=== PATIENT | female | born 1940 | race Caucasian/White ===

== ENCOUNTER → 2017-06-28 | Outpatient (CLI) | payer OTHER | END | disposition home or self-care (01) | LOC: C.PATHSPEC 17:33 | PROVIDERS: ATTEND Plastic Surgery | DX: C44.209 Unspecified malignant neoplasm of skin of left ear and external auricular canal (principal) ==

== ENCOUNTER → 2017-11-28 | Outpatient (CLI) | payer OTHER, BC | END | disposition home or self-care (01) | LOC: C.PATHSPEC 18:03 | PROVIDERS: ATTEND Dermatology | DX: C44.41 Basal cell carcinoma of skin of scalp and neck (principal) ==

== ENCOUNTER 2018-03-01 05:04 | Observation (INO) | payer OTHER, BC ==
[2018-02-20 08:37] VITALS: BMI 45.0
[2018-02-21 09:13] VITALS: BMI 45.0
--- NOTE | 2018-02-21 09:32 | PAT Medication Instructions ---
Service Date Feb 21, 2018. Current Home Medication List Alendronate/Cholecalciferol (Fosamax+D 70MG/2800 Iu), 1 TABLET PO WK Atorvastatin (Lipitor), 10 MG PO Mon Cholecalciferol (Vitamin D3), 1 TAB PO QAM Ibuprofen Tab (Advil), 400 MG PO BID Insulin Human Regular (Insulin Regular Pump ), 1 EA N/A UD Meloxicam (Mobic), 15 MG PO QAM Metformin Hcl (Glucophage), 500 MG PO BID Olopatadine Hydrochloride (Pataday), 1 DROPS OP PRN Psyllium (Metamucil), 1 DOSE PO QAM Triamcinolone Acetonide (Nasal (Nasacort Allergy 24Hr), 2 SPRAYS INTNAS PRN [Coq10], 1 TAB PO QAM [Losartan Hctz], 1 TAB PO QAM [Turmeric], 15 MG PO BID Medication Instructions For Your Scheduled Surgery - Continue as directed: Atorvastatin (Lipitor), 10 MG PO Mon Alendronate/Cholecalciferol (Fosamax+D 70MG/2800 Iu), 1 TABLET PO WK - Check with surgeon for instructions: Ibuprofen Tab (Advil), 400 MG PO BID - Hold the following medications starting 02/21/18: [Turmeric], 15 MG PO BID [Coq10], 1 TAB PO QAM - Hold the following medications the morning of surgery: Cholecalciferol (Vitamin D3), 1 TAB PO QAM Meloxicam (Mobic), 15 MG PO QAM Metformin Hcl (Glucophage), 500 MG PO BID Psyllium (Metamucil), 1 DOSE PO QAM [Losartan Hctz], 1 TAB PO QAM - Take the following medications the morning of surgery with a sip of water: Olopatadine Hydrochloride (Pataday), 1 DROPS OP PRN (if needed) Triamcinolone Acetonide (Nasal (Nasacort Allergy 24Hr), 2 SPRAYS INTNAS PRN (if needed) - Take the following medications as scheduled the night before surgery: Olopatadine Hydrochloride (Pataday), 1 DROPS OP PRN (if needed) Metformin Hcl (Glucophage), 500 MG PO BID Triamcinolone Acetonide (Nasal (Nasacort Allergy 24Hr), 2 SPRAYS INTNAS PRN (if needed) - For Insulin Dependent Diabetic patients: Test blood sugar A.M. of surgery. -Insulin Human Regular (Insulin Regular Pump ), 1 EA N/A UD-- keep on basal setting; do not bolus If you have any questions please call us at [phone] or [phone] or [phone]
[2018-02-21 10:23] LABS: BASO % 0.5 %; BASO ABS # 0.05 K/uL (0-0.2); EOS % 2.4 %; EOS ABS # 0.22 K/uL (0-0.5); HEMATOCRIT 43.7 % (37-47); HEMOGLOBIN 14.5 g/dL (12.0-16.0); IG# 0.02 K/uL (0.00-0.02); LYMPH % 27.4 %; LYMPH ABS # 2.54 K/uL (1.2-3.4); MEAN CELL VOLUME 90.7 fL (80-100); MEAN CORPUSCULAR HEMOGLOBIN 30.1 pg (25-34); MEAN CORPUSCULAR HGB CONC 33.2 g/dl (32-36); MEAN PLATELET VOLUME 11.2 fL (7.4-10.4); MONO % 10.2 %; MONO ABS # 0.95 K/uL (0.11-0.59); NEUT % 59.3 %; NEUT ABS # 5.49 K/uL (1.4-6.5); PLATELET COUNT 261 K/uL (130-400); RED CELL DISTRIBUTION WIDTH CV 14.1 % (11.5-14.5); RED CELL DISTRIBUTION WIDTH SD 46.6 fL (36.4-46.3); WHITE BLOOD COUNT 9.27 K/uL (4.8-10.8)
--- NOTE | 2018-02-21 10:28 | DIAGNOSTIC IMAGING REPORT ---
TWO VIEW CHEST CLINICAL HISTORY: Preoperative examination. FINDINGS: PA and lateral chest radiographs are obtained. No prior studies are available for comparison at the time of dictation. The cardiomediastinal silhouette is unremarkable. Nonspecific interstitial thickening is likely chronic. No airspace consolidation or pleural effusion is identified. There is no pneumothorax. The skeletal structures are osteopenic. Degenerative change is noted throughout the thoracic spine. The bony thorax appears intact. IMPRESSION: No active disease in the chest. Electronically signed by: Julius Joel M.D. 02/21/2018 10:26 AM Dictated Date/Time: 02/21/2018 10:26 AM
[2018-02-21 10:29] LABS: HEMOGLOBIN A1C 7.1 % (4.5-5.6)
[2018-02-21 10:30] LABS: CALCIUM 9.2 mg/dl (8.5-10.1); CREATININE 1.14 mg/dl (0.60-1.20); POTASSIUM 4.5 mmol/L (3.5-5.1)
--- NOTE | 2018-02-28 15:38 | HISTORY & PHYSICAL EXAMINATION ---
DATE OF ADMISSION: 03/01/2018 She is being preoped for laminectomy L3-L4, L4-L5. CHIEF COMPLAINT: Back pain; lower extremity difficulty; difficulty with ambulation, standing up; associated weakness and gait abnormality. She has failed conservative measures. She has profound stenosis of the spine. PAST MEDICAL HISTORY: Hypertension, diabetes, obesity. PAST SURGICAL HISTORY: Negative. ALLERGIES: None. FAMILY HISTORY: Diabetes. SOCIAL HISTORY: She is , rarely drinks. No tobacco. Moderately active lifestyle. REVIEW OF SYSTEMS: Twelve system review. She denies any fevers, sweats, chills. Ear, nose and throat negative. Denies chest pain, palpitations. No asthma, wheezing. No nausea, vomiting. No loss of bowel and bladder function. She has mostly joint pain, stiffness. MEDICATIONS: Lipitor, losartan, metformin, insulin, CoQ10, turmeric and vitamin D3. PHYSICAL EXAMINATION: VITAL SIGNS: Height 5 feet 2 inches, weight 230. Blood pressure 140/80, pulse 80. GENERAL: Alert, oriented. MENTATION: Normal. CARDIAC: Normal S1, S2. LUNGS: Clear. ABDOMEN: Obese, but nontender. EXTREMITIES: Intact x4. No adenopathy. Mild edema. She has pain with straight leg raising bilateral, decreased range of motion and pain with extension, alleviated by forward flexion. IMAGES: Demonstrate severe stenosis, critical level L3-L5. PLAN: Includes a laminectomy L3-L4, L4-L5 lumbar spine.
[2018-03-01] VITALS (9 sets, daily range): BP systolic 123–156; BP diastolic 57–90; PULSE 62–85; TEMP 36.5–37; O2SAT 91–97; Ht 154.9 cm; Wt 107.8 kg
[~2018-03-01] VITALS: Ht 154.9 cm; Wt 107.8 kg
[~2018-03-01 05:04] MED LIST: ATOR10TA82 PO; CHOL1000 PO; COQ10 PO; FSMD/70 PO; GLC/500 PO; IBUP-103 PO; INSPMPRG; LOSARTAN HCTZ PO; MELO7.5T5 PO; PSYL0.524 PO; PTDOPS OP; TRIA1SPR4 INTNAS; TURMERIC PO
[2018-03-01] MEDS ORDERED: CEFAZOLIN 2000MG IV PUSH 15 ML IV SCH (06:00)
[2018-03-01] MEDS ORDERED: SODIUM CHLORIDE 0.9% 1000ML 1,000 ML IV SCH ×2 (06:00→09:16)
[2018-03-01] MEDS ORDERED: LACTATED RINGER'S 1000ML 1,000 ML IV SCH (06:00)
[2018-03-01] MEDS ORDERED: GELATIN SPONGE SZ 100 ONE (06:50)
[2018-03-01] MEDS ORDERED: THROMBIN FOR SOLN 20000 UNIT KIT ONE (06:50)
[2018-03-01] MEDS ORDERED: VANCOMYCIN HCL 1000MG/20ML VIAL ONE (06:50)
[2018-03-01] MEDS ORDERED: BACITRACIN 50000 UNIT VIAL ONE (06:50)
[2018-03-01] MEDS ORDERED: BUPIVACAINE/EPINEPHRINE 0.5% MPF 1:200,000 30 ML VIAL ONE (06:53)
[2018-03-01] MEDS ORDERED: FENTANYL CITRATE INJ 50 MCG/1 ML 2 ML VIAL ONE ×3 (07:02→10:13)
[2018-03-01] MEDS ORDERED: MIDAZOLAM HCL 1 MG/ML 2ML VIAL ONE (07:02)
--- NOTE | 2018-03-01 07:21 | History & Physical Bridge Note ---
H&P Re-Evaluation Bridge Note: I have examined the patient, reviewed the History & Physical and in the interval since the performance of the History & Physical I have noted the following changes of clinical significance: No changes noted
[2018-03-01] MEDS ORDERED: LARYING-O-JET KIT (LTA) ONE (08:14)
[2018-03-01] MEDS ORDERED: NEOSTIGMINE METHYLSULFATE 1 MG/ML 10ML VIAL ONE (08:14)
[2018-03-01] MEDS ORDERED: ONDANSETRON INJ 2 MG/ML 2 ML VIAL ONE (08:14)
[2018-03-01] MEDS ORDERED: EpHEDrine SULFATE 50MG/5ML SYR ONE (08:14)
[2018-03-01] MEDS ORDERED: GLYCOPYRROLATE INJ 0.2 MG/ML VIAL ONE (08:14)
[2018-03-01] MEDS ORDERED: LIDOCAINE HCL 2% 2 ML VIAL (20MG/ML) ONE (08:14)
[2018-03-01] MEDS ORDERED: ROCURONIUM BROMIDE 10 MG/ML 5 ML VIAL ONE (08:14)
[2018-03-01] MEDS ORDERED: PHENYLEPHRINE 100MCG/ML 5ML SYR ONE (08:14)
[2018-03-01] MEDS ORDERED: SUCCINYLCHOLINE CHLORIDE 20 MG/ML 10 ML VIAL IV ONE (08:14)
[2018-03-01] MEDS ORDERED: PROPOFOL IV EMULSION 10 MG/ML 20 ML VIAL ONE (08:14)
--- NOTE | 2018-03-01 09:11 | [facility] Post Operative Brief Note ---
Immediate Operative Summary Operative Date Mar 01, 2018. Pre-Operative Diagnosis SPINAL STENOSIS Post-Operative Diagnosis SAME PREOP Procedure(s) Performed LAMINECTOMY L3-4, L4-[address] Meagan KAUR Log Roller Surgeon(s) Keven ALCANTAR PAC Estimated Blood Loss 150ml Findings Consistent with Post-Op Diagnosis Specimens NONE Anesthesia Type General Disposition Accompanied Pt To Recover: yes Overlapping Procedure I was immediately available: during the entire case
--- NOTE | 2018-03-01 09:28 | DIAGNOSTIC IMAGING REPORT ---
SPINE ONE VIEW, ANY LEVEL CLINICAL HISTORY: 77 years-old Female presenting with L3-L4 L4-L5 LAMI. TECHNIQUE: 1 fluoroscopic image(s) recorded as part of an intraoperative procedure. COMPARISON: 01/19/2018. FINDINGS/IMPRESSION: Surgical hardware projects over the lumbar region. Please see surgical report for further details. Fluoroscopy dosage (mGy): 1.93. Fluoroscopy time: 2.8 seconds. Number or time of fluoroscopic spot images: 0. Electronically signed by: Art Alba M.D. 03/01/2018 9:26 AM Dictated Date/Time: 03/01/2018 9:26 AM
[2018-03-01] MEDS ORDERED: ACETAMINOPHEN 325 MG TAB PO PRN (09:30)
[2018-03-01] MEDS ORDERED: ONDANSETRON INJ 2 MG/ML 2 ML VIAL IV PRN ×2 (09:30→10:15)
[2018-03-01] MEDS ORDERED: INSULIN REGULAR PUMP SCH (09:30)
[2018-03-01] MEDS ORDERED: HYDROmorphone INJ 2 MG/ML SYR/VIAL IV PRN (09:30)
[2018-03-01] MEDS ORDERED: HYDROmorphone INJ 1 MG/ML SYR IV PRN (09:30)
[2018-03-01] MEDS ORDERED: OXYCODONE HCL IR 5 MG TAB (IMMEDIATE RELEASE) PO PRN ×2 (09:30)
[2018-03-01] MEDS ORDERED: PROMETHAZINE HCL INJ 12.5 MG in SODIUM CHLORIDE 0.9% 50ML 50 ML IV PRN (09:30)
[2018-03-01] MEDS ORDERED: MAGNESIUM HYDROXIDE SUSP 30 ML UDC PO PRN (09:30)
[2018-03-01] MEDS ORDERED: LORAZEPAM 1 MG TAB PO PRN (09:30)
[2018-03-01] MEDS ORDERED: METOCLOPRAMIDE HCL INJ 5 MG/ML 2 ML VIAL IV PRN (09:30)
[2018-03-01] MEDS ORDERED: LORAZEPAM INJ 1 MG in SYRINGE 0 ML IV PRN (09:30)
[2018-03-01 09:50] LABS: HEMATOCRIT 39.3 % (37-47); HEMOGLOBIN 12.9 g/dL (12.0-16.0)
[2018-03-01] MEDS ORDERED: HYDROmorphone INJ 0.5 MG/0.5 ML SYR IV PRN (10:15)
[2018-03-01] MEDS ORDERED: EpHEDrine SULFATE INJ 50 MG/ML AMP IV PRN (10:15)
[2018-03-01] MEDS ORDERED: ATROPINE SULFATE 0.1 MG/ML 5ML SYR IV PRN (10:15)
[2018-03-01] MEDS ORDERED: FENTANYL CITRATE INJ 50 MCG/1 ML 2 ML VIAL IV PRN (10:15)
[2018-03-01] MEDS ORDERED: PROMETHAZINE HCL INJ 6.25 MG in SODIUM CHLORIDE 0.9% 50ML 50 ML IV PRN (10:15)
--- NOTE | 2018-03-01 10:26 | Anesthesiology Progress Note ---
Anesthesia Post Op Note Date & Time Mar 01, 2018 at 10:26 Vital Signs Pain Intensity: 4 Vital Signs Past 12 Hours Date Time Temp Pulse Resp B/P (MAP) Pulse Ox O2 Delivery O2 Flow Rate FiO2 03/01/18 10:15 36.3 63 20 141/64 97 Nasal Cannula 4 03/01/18 10:05 68 20 143/60 96 Nasal Cannula 4 03/01/18 09:55 70 19 131/60 96 Nasal Cannula 4 03/01/18 09:45 68 19 155/65 98 Oxymask 10 03/01/18 09:35 70 17 128/54 98 Oxymask 10 03/01/18 09:25 70 23 140/58 96 Oxymask 10 03/01/18 09:16 36.6 68 16 142/58 96 Oxymask 10 03/01/18 05:42 36.7 82 18 123/90 (101) 92 Room Air Notes Mental Status: alert / awake / arousable, participated in evaluation Pt Amnestic to Procedure: Yes Nausea / Vomiting: adequately controlled Pain: adequately controlled Airway Patency, RR, SpO2: stable & adequate BP & HR: stable & adequate Hydration State: stable & adequate Anesthetic Complications: no major complications apparent
[2018-03-01] MEDS ORDERED: LABETALOL HCL IV 5 MG/ML 20ML ONE (10:30)
[2018-03-01] MEDS ORDERED: HYDROmorphone INJ 0.5 MG/0.5 ML SYR IV ONE (11:30)
--- NOTE | 2018-03-01 11:37 | Medical Consult ---
Consultation Date of Consultation: Mar 01, 2018. Attending Physician: Francisco Dumont DO History of Present Illness 77 y/o F Hx DM II, HTN, HPL, obesity, osteoporosis, lumbar stenosis. The pt is post L 3-4, 4-5 laminectomy. She has no complaints of CP, SOB, N/V, fevers. She does have a burning pain at the surgical site. Past Medical/Surgical History 1) DM II 2) HTN 3) HPL 4) Morbidly obese 5) Lumbar stenosis 6) Osteoporosis Family History DM II Social History Does not smoke - rarely drinks Smoking Status: Never Smoker Allergies Coded Allergies: Codeine (Verified Allergy, Unknown, NAUSEA, 03/01/18) Penicillins (Verified Allergy, Unknown, BLACKED OUT- A CHILD, 03/01/18) Meperidine (Verified Adverse Reaction, Mild, STARTED BLEEDING FROM INJECTION SITE, 03/01/18) Current Inpatient Medications Current Inpatient Medications Medications (Trade) Dose Ordered Sig/Roshan Route Start Time Stop Time Status Last Admin Dose Admin Cefazolin Sodium 15 ml @ 3.75 mls/ min PREOP IV 03/01/18 06:00 03/01/18 18:00 03/01/18 07:34 3.75 MLS/MIN Sodium Chloride 1,000 ml @ 15 mls/hr Q24H IV 03/01/18 06:00 03/02/18 05:59 03/01/18 05:55 15 MLS/HR Lactated Ringer's 1,000 ml @ 15 mls/hr Q24H IV 03/01/18 06:00 03/02/18 05:59 Acetaminophen (Tylenol Tab) 650 mg Q6H PRN PO 03/01/18 09:30 03/31/18 09:29 UNV Hydromorphone HCl (Dilaudid Inj) 1 mg Q3H PRN IV 03/01/18 09:30 03/15/18 09:29 UNV Hydromorphone HCl (Dilaudid Inj) 1.5 mg Q3H PRN IV 03/01/18 09:30 03/15/18 09:29 UNV Promethazine HCl 12.5 mg/Sodium Chloride 50.5 ml @ 202 mls/hr Q6H PRN IV 03/01/18 09:30 03/31/18 09:29 UNV Ondansetron HCl (Zofran Inj) 4 mg Q6H PRN IV 03/01/18 09:30 03/31/18 09:29 UNV Metoclopramide HCl (Reglan Inj) 10 mg Q6H PRN IV 03/01/18 09:30 03/31/18 09:29 UNV Lorazepam (Ativan Tab) 1 mg Q6H PRN PO 03/01/18 09:30 03/31/18 09:29 UNV Lorazepam 1 mg/ Syringe 0.5 ml @ 1 mls/min Q6H PRN IV 03/01/18 09:30 03/31/18 09:29 UNV Polyethylene (Miralax Powder Packet) 17 gm DAILY PO 03/02/18 09:00 04/01/18 08:59 UNV Bisacodyl (Dulcolax Tab) 5 mg DAILY PRN PO 03/02/18 06:00 04/01/18 05:59 UNV Bisacodyl (Dulcolax Supp) 10 mg DAILY PRN OR 03/02/18 06:00 04/01/18 05:59 UNV Magnesium Hydroxide (Milk Of Magnesia Susp) 30 ml DAILY PRN PO 03/01/18 09:30 03/31/18 09:29 UNV Diphenhydramine HCl (Benadryl Cap) 25 mg Q6H PRN PO 03/01/18 09:30 03/31/18 09:29 UNV Clindamycin Phosphate 600 mg/ Dextrose 54 ml @ 100 mls/hr Q8H IV 03/01/18 09:30 03/01/18 18:03 UNV Oxycodone HCl (Roxicodone Immediate Rel Tab) 5 mg Q4H PRN PO 03/01/18 09:30 03/15/18 09:29 UNV Oxycodone HCl (Roxicodone Immediate Rel Tab) 10 mg Q4H PRN PO 03/01/18 09:30 03/15/18 09:29 UNV Sodium Chloride 1,000 ml @ 80 mls/hr [id number] IV 03/01/18 09:16 03/31/18 09:15 UNV Acetaminophen 1000 mg/Empty Bag 100 ml @ 400 mls/hr Q8H IV 03/01/18 09:30 03/31/18 09:29 UNV Ibuprofen (Advil Tab) 400 mg BID PO 03/01/18 21:00 03/31/18 20:59 UNV Insulin Human Regular (Insulin Regular Pump) 1 ea UD N/A 03/01/18 09:30 03/31/18 09:29 UNV Meloxicam (Mobic Tab) 15 mg QAM PO 03/02/18 09:00 04/01/18 08:59 UNV Non-Formulary Medication (Olopatadine Hydrochloride (Pataday)) 1 drops PRN OP 03/01/18 09:30 03/31/18 09:29 UNV Non-Formulary Medication (Psyllium (Metamucil)) 1 dose QAM PO 03/02/18 09:00 04/01/18 08:59 UNV Non-Formulary Medication ([Coq10] ) 1 tab QAM PO 03/02/18 09:00 04/01/18 08:59 UNV Non-Formulary Medication ([Losartan Hctz] ) 1 tab QAM PO 03/02/18 09:00 04/01/18 08:59 UNV Non-Formulary Medication ([Turmeric] ) 15 mg BID PO 03/01/18 21:00 03/31/18 20:59 UNV Fentanyl Citrate (Fentanyl Inj) 50 mcg Q5M PRN IV 03/01/18 10:15 03/01/18 16:15 Hydromorphone HCl (Dilaudid Inj) 0.5 mg Q5M PRN IV 03/01/18 10:15 03/01/18 16:15 Ondansetron HCl (Zofran Inj) 4 mg ONE PRN IV 03/01/18 10:15 03/01/18 15:15 Promethazine HCl 6.25 mg/Sodium Chloride 50.25 ml @ 202 mls/hr ONE PRN IV 03/01/18 10:15 03/01/18 16:15 Ephedrine Sulfate (EpHEDrine SULFATE INJ) 5 mg Q5M PRN IV 03/01/18 10:15 03/01/18 16:15 Atropine Sulfate (Atropine Sulfate 0.1mg/ml Inj) 0.5 mg Q1M PRN IV 03/01/18 10:15 03/01/18 16:15 Review of Systems Constitutional: No fever, No chills, No sweats Eyes: No worsening of vision ENT: No hearing loss, No nasal symptoms Respiratory: No cough, No sputum, No wheezing Cardiovascular: No chest pain Abdomen: No pain, No nausea, No vomiting Musculoskeletal: + joint pain (Chronic back pain), + problem reported (pain at surgial site - burning in nature) Genitourinary - Female: No dysuria, No urinary frequency Neurologic: No memory loss, No paralysis Psychiatric: No depression symptoms Endocrine: No fatigue Hematologic / Lymphatic: No abnormal bleeding/bruising Integumentary: No rash Allergic / Immunologic: No environmental allergies Physical Exam Date Time Temp Pulse Resp B/P (MAP) Pulse Ox O2 Delivery O2 Flow Rate FiO2 03/01/18 10:35 36.3 66 26 148/79 96 Nasal Cannula 4 03/01/18 10:25 36.3 63 20 140/72 96 Nasal Cannula 4 03/01/18 10:15 36.3 63 20 141/64 97 Nasal Cannula 4 03/01/18 10:05 68 20 143/60 96 Nasal Cannula 4 03/01/18 09:55 70 19 131/60 96 Nasal Cannula 4 03/01/18 09:45 68 19 155/65 98 Oxymask 10 03/01/18 09:35 70 17 128/54 98 Oxymask 10 03/01/18 09:25 70 23 140/58 96 Oxymask 10 03/01/18 09:16 36.6 68 16 142/58 96 Oxymask 10 03/01/18 05:42 36.7 82 18 123/90 (101) 92 Room Air General Appearance: WD/WN, no apparent distress Head: normocephalic Eyes: normal inspection ENT: normal ENT inspection, pharynx normal Neck: supple, no JVD Respiratory/Chest: chest non-tender, lungs clear, normal breath sounds Cardiovascular: regular rate, rhythm, no gallop Abdomen/GI: normal bowel sounds, non tender, soft Back: + pertinent finding (Did not shift pt forward post-op) Extremities/Musculoskelatal: normal inspection, no calf tenderness 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 The pt is post L 3-4, 4-5 laminectomy. She has no complaints of CP, SOB, N/V, fevers. She does have a burning pain at the surgical site. 1) Post-op - no acute complications - PT/OT and anticoagulation at earliest appropriate time per ortho. We have provided one additional dose of Dilaudid for uncontrolled pain and we will make further adjustments as needed. 2) DM II - Pt uses a pump which can be continued 3) HTN - Losartan can be resumed following AM labs POD 2 if there are no acute derangements. 4) HPL - cont Atorvastatin michael-op. Total time for this admit including review of labs, meds, imaging, records - discussion with pt and review of ortho notes - 30 min
[2018-03-01] MEDS ORDERED: HYDROmorphone INJ 1 MG/ML SYR ONE (11:45)
[2018-03-01] MEDS ORDERED: IV FLUIDS COMPLETED PRN (12:30)
[2018-03-01] MEDS: ACETAMINOPHEN IV 1,000 MG in EMPTY BAG 0 ML IV SCH ×3 (13:31→21:52)
[2018-03-01] MEDS ORDERED: NURSING VERBAL MED ORDER ONE (13:45)
--- NOTE | 2018-03-01 14:13 | OPERATIVE REPORT ---
DATE OF OPERATION: 03/01/2018 PREOPERATIVE DIAGNOSIS: Spinal stenosis, L3, L4, L5. POSTOPERATIVE DIAGNOSIS: Same. PROCEDURES: Include laminectomy L3, L4, L5, foraminotomies and partial facetectomies. SURGEON: Francisco Dumont DO. HOOF AND SHOE INSPECTOR: Ze Hernandez PA-C. COMPLICATIONS: None. ESTIMATED BLOOD LOSS: 150 mL. DESCRIPTION OF PROCEDURE: Patient was taken to the operating room. A general intubated anesthetic provided to the patient, placed prone. Scrubbed, prepped and draped sterile. We made a skin incision, fascial incision. We dissected down toward the lamina and facet joints cleanly, put in a deep self-retaining retractor, 4 inch blades by the super slide retractor. We meticulously decompressed the lamina of L5, L4, and L3 using various techniques, Kerrison's, rongeurs, and a high speed bur. I was pleased with the decompression from the visualization and palpation. We began our closure, irrigated thoroughly, placed Gelfoam and vancomycin powder deep over a Hemovac drain, 1:1 Vicryl closure, 2-0 subcu, and staple gun on the skin. Sterile dressings applied. Patient returned to PACU safely without complications. I attest to the content of the Intraoperative Record and any orders documented therein. Any exception s are noted below.
[2018-03-01] MEDS ORDERED: DEXTROSE 50% 50 ML SYR IV PRN (15:00)
[2018-03-01] MEDS ORDERED: GLUCAGON FOR INJ 1 MG VIAL IM PRN (15:00)
[2018-03-01] MEDS ORDERED: GLUCOSE 40% GEL 15 GM TUBE PO PRN (15:00)
[2018-03-01] MEDS ORDERED: CARBOHYDRATES FOR HYPOGLYCEMIA PO PRN (15:00)
[2018-03-01] MEDS ORDERED: INSULIN ASPART 100 UNITS/ML VIAL SC PRN (15:00)
[2018-03-01] MEDS ORDERED: GLUCOSE 10 TABS/TUBE PO PRN (15:00)
[2018-03-01] MEDS: CLINDAMYCIN IV 600 MG in DEXTROSE 5% 50ML 50 ML IV SCH ×2 (16:41→23:21)
[2018-03-01] MEDS: NovoLOG INSULIN PUMP SCH ×2 (17:28→21:17)
[2018-03-01] MEDS ORDERED: TURMERIC PO SCH (21:00)
[2018-03-01] MEDS: IBUPROFEN 200 MG TAB PO SCH (21:03)
[2018-03-02 03:05] VITALS: BP 129/68; PULSE 81; TEMP 36.8; O2SAT 94
[2018-03-02] MEDS ORDERED: BISACODYL 10 MG SUPP PR PRN (06:00)
[2018-03-02] MEDS ORDERED: BISACODYL 5 MG TABEC PO PRN (06:00)
[2018-03-02 07:28] VITALS: BP 166/85; PULSE 89; TEMP 36.6; O2SAT 94
[2018-03-02] MEDS ORDERED: OXYC-57 PO (08:07)
--- NOTE | 2018-03-02 08:08 | Discharge Instructions ---
Discharge Instructions Date of Service Mar 02, 2018. Admission Reason for Admission: Lumbar Spinal Stenosis Discharge Discharge Diagnosis / Problem: same Discharge Goals Goal(s): Improve function Activity Recommendations Activity Limitations: as noted below Lifting Limitations: no more than 5 pounds Shower/Bathe: keep incision dry . Instructions / Follow-Up Instructions / Follow-Up MEDICATIONS: Please take your prescriptions as instructed at your pre-op appointment. SPECIAL CARE: The following information is intended to answer some of the common questions and concerns regarding your surgery. Each patient is an individual and receives individual counselling throughout the course of treatment, from diagnosis to surgery all the way through recovery. What follows is not an exhaustive list, but should be a useful guide to some of the common questions and concerns patients have regarding their surgeries. These are not provided to keep you from calling us; rather, they give you something accurate and concrete to reference as you recover from your procedure. If you need us, we are available to you. As always, if you are not sure about something, call us at [phone]. MEDICAL EMERGENCIES: For these conditions, call 911 or go to your local hospital-based Emergency Department - not [facility] or equivalent. * Paralysis * Severe chest pain or difficulty breathing * Swelling or redness of either leg Spine procedures can be rather complex and though complications are rare, they do occur. In such cases, effective advice regarding emergency situations cannot always be addressed over the telephone. You may be referred to the emergency department for more effective management of your problem. Activity Limitations: It is important to give your body time to heal, so please limit your activities : * In general, don't do anything that moves your spine too much. You should avoid contact sports, twisting or heavy lifting while you recover. * 5-10 pounds is all you should attempt to lift. * You should not plan on driving for approximately 3 weeks and you should avoid traveling more than 30-45 minutes at a time. Longer trips should be broken down with walking breaks spaced appropriately. * Physical therapy is not usually required. * Walking and good posture practices will help you recover and regain your function. * Avoid straining or sudden changes in position. * In general, the goal is to take it easy and recover. Don't cause any new problems. Just relax. Showers: * Do not take a bath, use a Jacuzzi or hot tub or otherwise submerge your incision. * It is usually safe to take a shower 4-5 days after your surgery. * Your incision does not require any special creams or ointments. * Simply clean it with soap and water, dry and re-dress with a clean bandage afterwards. Incision: * Keep incision clean, dry and protected until your first follow-up appointment. * Some amount of drainage and redness is normal. Any drainage should be fairly clear and not have a foul odor. * If you feel anything is wrong or you have excessive drainage, please call us. * Your stitches and noe will be removed 10-14 days after your surgery. At the time of your first post-op visit. * Neck surgeries are typically closed with a suture underneath the skin. The steri-strips over the incision should be maintained until we see you in the office. Bracing: * You may be provided with a back or neck brace to encourage good posture and prevent injury. It will remind you not to do too much as you heal and will alert others to the fact that you have had a surgery. * Back braces may be removed for showers and when you are resting at home. They must be worn when you are walking around for any period of time or for travel. * For neck surgery, you will likely be provided with two cervical collars. The soft collar ([place] or foam rubber) is worn most commonly throughout the day and while sleeping. The plastic collar (provided at the hospital) is for showering/bathing. * Except while eating, collars should remain in place. More specifically, bracing is provided for a purpose and should be worn. * Please obtain your brace or collars prior to your operation and bring them to the hospital with you on the day of surgery. * You should also bring your collars to your post-op appointment with Dr. Dumont. You should always take good care of your body and practice healthy habits, especially following surgery. You should: * Follow your doctor's treatment plan * Sit and stand properly with good posture (ears over shoulders, shoulders over hips) Don't slouch * Learn to lift correctly * Exercise regularly (low-impact aerobic exercise is especially good, but check with your doctor first) * Generally, be up and walking for 5-10 minutes at a time at least 3-4 times per day from the day you get home * Increasing walking to tolerance until you can walk for 20-30 minutes at a time * Attain and maintain a healthy body weight * Eat healthy foods ( a well-balanced, low-fat diet rich in fruits and vegetables) and get enough calcium * Avoid excessive use of alcohol When to call our office - If you notice any of the following: * Increased pain not relieve by pain medicine * Fevers greater then 100 degrees F, chills or flu symptoms * Increased redness around incision * Drainage from the incision that is not clear * Any foul smelling drainage * Swelling or fluid collection beneath the skin Miscellaneous: * In the hospital, you may be given a walker or cane for support while walking. These are temporary needs and are intended to prevent injuries due to falls. You may discontinue them when you feel strong and steady enough on your feet. * Sleep in a comfortable position. We find that many patients find a lounge chair or recliner with several pillows to be beneficial in the early post-operative period. * The support stockings should be used for 7-10 days and may be discontinued when you are back to walking more and conducting usual household activities. No problem is insignificant. We are here to help you and get you well. Contact us at [phone]. Definitions: Foraminotomy: If part of the disc or a bone spur (osteophyte) is pressing on a nerve as it leaves the vertebra (through an exit called the foramen), a foraminotomy may be done. Otomy means "to make an opening." A foraminotomy is making the opening of the foramen larger, so the nerve can exit without being compressed. Laminotomy: Similar to the foraminotomy, a laminotomy makes a larger opening, this time in your bony plate protecting your spinal canal and spinal cord (the lamina). The lamina may be pressing on your nerve, so the surgeon may make more room for the nerves using a laminotomy. Laminectomy: Sometimes, a laminotomy is not sufficient. The surgeon may need to remove all or part of the lamina. This procedure is called a laminectomy. This can often be done at many levels without any harmful effects. Current Hospital Diet Patient's current hospital diet: Diabetes Type 2 Diet Discharge Diet Recommended Diet: Diabetes Type 2 Diet Procedures Procedures Performed: LAMINECTOMY L3-4, L4-5 Pending Studies Studies pending at discharge: no Laboratory Results Hemoglobin A1c Test 02/21/18 09:38 Range/Units Estimated Average Glucose 157 mg/dl Hemoglobin A1c 7.1 H 4.5-5.6 % Medical Emergencies . Who to Call and When: Medical Emergencies: If at any time you feel your situation is an emergency, please call 911 immediately. . Non-Emergent Contact Non-Emergency issues call your: Primary Care Provider . "Provider Documentation" section prepared by Francisco Dumont. .
[2018-03-02] MEDS: MELOXICAM 7.5 MG TAB PO SCH (08:34)
[2018-03-02] MEDS: LOSARTAN POTASSIUM 50 MG TAB PO SCH (08:34)
[2018-03-02] MEDS: LOSARTAN/HCTZ 50-12.5 EA TAB PO SCH (08:34)
[2018-03-02] MEDS: NovoLOG INSULIN PUMP SCH ×4 (08:35→21:02)
[2018-03-02] MEDS: IBUPROFEN 200 MG TAB PO SCH ×2 (08:35→21:00)
[2018-03-02] MEDS: PSYLLIUM 58.6% PWD PACK S\\F PO SCH (08:35)
[2018-03-02] MEDS: POLYETHYLENE (MIRALAX) 17 GM PACK PO SCH (08:36)
[2018-03-02] MEDS ORDERED: NON-FORMULARY MEDICATION ([Coq10] 1 TAB) PO SCH (09:00)
[2018-03-02] MEDS: ACETAMINOPHEN IV 1,000 MG in EMPTY BAG 0 ML IV SCH ×3 (13:27→22:24)
[2018-03-02 15:37] VITALS: BP 116/65; PULSE 85; TEMP 37; O2SAT 95
--- NOTE | 2018-03-02 19:22 | Progress Note ---
Medicine Progress Note Date & Time of Visit: Mar 02, 2018 at ~ 11:00 . Subjective Doing well postoperatively. No chest pain. No cough or dyspnea. No nausea or vomiting. Not passing any flatus or stool yet. Still has Orozco catheter. Blood sugars fairly well controlled on insulin pump. Postop pain well-controlled. . Objective Last 8 Hrs Date Time Temp Pulse Resp B/P (MAP) Pulse Ox O2 Delivery O2 Flow Rate FiO2 03/02/18 15:37 37.0 85 18 116/65 (82) 95 Room Air 03/02/18 15:20 Room Air Physical Exam: General- sitting in chair, knitting, no distress Lungs- clear to auscultation; no respiratory distress Cardiovascular- RRR; I/ systolic murmur at base; no gallop; no JVD; no pretibial edema Abdomen- + bowel sounds, soft, nontender Extremities- no cyanosis; no calf tenderness Neuro- alert, oriented Skin- warm & dry . Laboratory Results: Last 24 Hours Test 03/01/18 21:07 03/02/18 08:02 03/02/18 12:18 03/02/18 17:05 Bedside Glucose 172 mg/dl 106 mg/dl 259 mg/dl 156 mg/dl Assessment & Plan S/P LUMBAR DECOMPRESSION POD # 1. HYPERTENSION BP this morning 166/85. Continue losartan and HCTZ. DIABETES MELLITUS TYPE 2 Hgb A1C preop was 7.1. Patient prefers to manage her own insulin pump. FBS this morning = 106. VTE PROPHYLAXIS Per Ortho protocol. Thank you for this consultation. We will follow the patient with you during their hospital stay. You can reach a member of the [facility] Medicine Team 06/02 via pager @ [phone]. You can reach me via cell @ [phone]. . Current Inpatient Medications: Current Inpatient Medications Medications (Trade) Dose Ordered Sig/Roshan Route Start Time Stop Time Status Last Admin Dose Admin Acetaminophen (Tylenol Tab) 650 mg Q6H PRN PO 03/01/18 09:30 03/31/18 09:29 Future Hold Hydromorphone HCl (Dilaudid Inj) 1 mg Q3H PRN IV 03/01/18 09:30 03/15/18 09:29 Hydromorphone HCl (Dilaudid Inj) 1.5 mg Q3H PRN IV 03/01/18 09:30 03/15/18 09:29 Promethazine HCl 12.5 mg/Sodium Chloride 50.5 ml @ 202 mls/hr Q6H PRN IV 03/01/18 09:30 03/31/18 09:29 Ondansetron HCl (Zofran Inj) 4 mg Q6H PRN IV 03/01/18 09:30 03/31/18 09:29 03/01/18 12:33 4 MG Metoclopramide HCl (Reglan Inj) 10 mg Q6H PRN IV 03/01/18 09:30 03/31/18 09:29 03/01/18 17:32 10 MG Lorazepam (Ativan Tab) 1 mg Q6H PRN PO 03/01/18 09:30 03/31/18 09:29 Lorazepam 1 mg/ Syringe 0.5 ml @ 1 mls/min Q6H PRN IV 03/01/18 09:30 03/31/18 09:29 Polyethylene (Miralax Powder Packet) 17 gm DAILY PO 03/02/18 09:00 04/01/18 08:59 Bisacodyl (Dulcolax Tab) 5 mg DAILY PRN PO 03/02/18 06:00 04/01/18 05:59 Bisacodyl (Dulcolax Supp) 10 mg DAILY PRN HI 03/02/18 06:00 04/01/18 05:59 Magnesium Hydroxide (Milk Of Magnesia Susp) 30 ml DAILY PRN PO 03/01/18 09:30 03/31/18 09:29 Diphenhydramine HCl (Benadryl Cap) 25 mg Q6H PRN PO 03/01/18 09:30 03/31/18 09:29 Oxycodone HCl (Roxicodone Immediate Rel Tab) 5 mg Q4H PRN PO 03/01/18 09:30 03/15/18 09:29 Oxycodone HCl (Roxicodone Immediate Rel Tab) 10 mg Q4H PRN PO 03/01/18 09:30 03/15/18 09:29 Acetaminophen 1000 mg/Empty Bag 100 ml @ 400 mls/hr Q8H IV 03/01/18 13:00 03/31/18 12:59 03/02/18 13:27 400 MLS/HR Ibuprofen (Advil Tab) 400 mg BID PO 03/01/18 21:00 03/31/18 20:59 03/02/18 08:35 400 MG Meloxicam (Mobic Tab) 15 mg QAM PO 03/02/18 09:00 04/01/18 08:59 03/02/18 08:34 15 MG Miscellaneous Information (Order Awaiting Action) 1 ea QS N/A 03/01/18 16:00 03/31/18 15:59 Psyllium Hydrophilic Mucilloid (Metamucil Powder) 1 pkt QAM PO 03/02/18 09:00 04/01/18 08:59 03/02/18 08:35 1 PKT HCTZ/Losartan Potassium (Hyzaar 50-12.5 Tab) 1 tab QAM PO 03/02/18 09:00 04/01/18 08:59 03/02/18 08:34 1 TAB Miscellaneous (Iv Fluids Completed) 1 ea PRN PRN N/A 03/01/18 12:30 03/01/19 12:29 Losartan Potassium (coZAAR TAB) 50 mg QAM PO 03/02/18 09:00 04/01/18 08:59 03/02/18 08:34 50 MG Insulin Aspart (novoLOG INSULIN PUMP) 1 ea ACHS N/A 03/01/18 17:15 03/31/18 17:14 03/02/18 17:53 1 EA Insulin Aspart (novoLOG ASPART) SLIDING SCALE PRN PRN SC 03/01/18 15:00 03/31/18 14:59 Glucose (Glucose 40% Gel) 15-30 GRAMS 15 GRAMS... UD PRN PO 03/01/18 15:00 03/31/18 14:59 Glucose (Glucose Chew Tab) 4-8 Tablets 4 Tabl... UD PRN PO 03/01/18 15:00 03/31/18 14:59 Glucagon (Glucagon Inj) 1 mg UD PRN IM 03/01/18 15:00 03/31/18 14:59 Dextrose (Dextrose 50% 50ML Syringe) 25-50ML 25ML FOR ... UD PRN IV 03/01/18 15:00 03/31/18 14:59 Carbohydrates (Carbohydrates For Hypoglycemia) 15-30 GRAMS 15 grams if BSG 54-69... UD PRN PO 03/01/18 15:00 03/31/18 14:59
[2018-03-02 22:44] VITALS: BP 149/61; PULSE 105; TEMP 37.7; O2SAT 92
[2018-03-03 00:05] VITALS: O2SAT 92
[2018-03-03] MEDS: ACETAMINOPHEN IV 1,000 MG in EMPTY BAG 0 ML IV SCH (05:00)
[2018-03-03 05:21] VITALS: PULSE 74; TEMP 36.3; O2SAT 95
[2018-03-03] MEDS: NovoLOG INSULIN PUMP SCH (08:00)
[2018-03-03 08:41] VITALS: BP 168/81; PULSE 70; TEMP 37.2; O2SAT 94
[2018-03-03] MEDS: MELOXICAM 7.5 MG TAB PO SCH ×2 (09:00→09:11)
[2018-03-03] MEDS: POLYETHYLENE (MIRALAX) 17 GM PACK PO SCH (09:00)
[2018-03-03] MEDS: LOSARTAN/HCTZ 50-12.5 EA TAB PO SCH (09:11)
[2018-03-03] MEDS: IBUPROFEN 200 MG TAB PO SCH (09:11)
[2018-03-03] MEDS: LOSARTAN POTASSIUM 50 MG TAB PO SCH (09:11)
[2018-03-03] MEDS: PSYLLIUM 58.6% PWD PACK S\\F PO SCH (09:12)
[2018-03-03 10:31] VITALS: BP 168/81; PULSE 70; TEMP 37.2; O2SAT 94
--- NOTE | 2018-03-05 07:56 | DISCHARGE SUMMARY ---
She is doing well postop day #2 from spinal stenosis surgery. Better motion, decreased pain, good functional ability, zero complaints. ASSESSMENT: Status post lumbar spine 3 level laminectomy, doing well. PLAN: Home today. Prescriptions on her chart. Walker at home. Instructions, precautions provided to the patient.
== END 2018-03-03 11:19 | disposition home or self-care (01) ==
LOC: C.ACU 05:04 → C.3E 07:10 → ENRESERV 09:56
PROVIDERS: ADMIT Orthopaedic Surgery Orthopaedic Surgery of the Spine; ATTEND Orthopaedic Surgery Orthopaedic Surgery of the Spine
DX: M48.061 Spinal stenosis, lumbar region without neurogenic claudication (principal); I10 Essential (primary) hypertension; E11.9 Type 2 diabetes mellitus without complications; E66.01 Morbid (severe) obesity due to excess calories; G47.33 Obstructive sleep apnea (adult) (pediatric); Z88.0 Allergy status to penicillin; Z88.5 Allergy status to narcotic agent; Z68.42 Body mass index [BMI] 45.0-49.9, adult; Z85.828 Personal history of other malignant neoplasm of skin; Z79.4 Long term (current) use of insulin; Z79.899 Other long term (current) drug therapy

== ENCOUNTER 2020-10-12 06:08 | Observation (INO) ==
--- NOTE | 2020-07-16 12:24 | PAT Medication Instructions ---
Medication Instructions Date of Service July 16, 2020 Home Medications metformin 500 mg tablet 500 mg PO BID atorvastatin 10 mg tablet 10 mg PO Q OTHER DAY cholecalciferol (vitamin D3) 50 mcg (2,000 unit) tablet 50 mcg PO QAM coenzyme Q10 1 tab PO QAM hydrochlorothiazide 12.5 mg tablet 12.5 mg PO QAM losartan 100 mg tablet 100 mg PO QAM olopatadine 0.1 % eye drops 1 drops OP BID PRN triamcinolone acetonide 55 mcg/actuation nasal spray,aerosol 55 mcg INTNAS UD PRN turmeric 1 tab PO BID cyanocobalamin (vitamin B-12) [Vitamin B-12] 1,000 mcg PO QPM insulin aspart U-100 [Novolog U-100 Insulin aspart] 1 unit SUBCUT UD psyllium [Metamucil] 1 packet PO QAM semaglutide [Ozempic] 0.25 mg SUBCUT WK Continue as directed semaglutide [Ozempic] 0.25 mg SUBCUT WK atorvastatin 10 mg tablet 10 mg PO Q OTHER DAY STOP taking 2 weeks before surgery (or as soon as possible if surgery is within 2 weeks) coenzyme Q10 1 tab PO QAM turmeric 1 tab PO BID DO NOT take the morning of surgery metformin 500 mg tablet 500 mg PO BID cholecalciferol (vitamin D3) 50 mcg (2,000 unit) tablet 50 mcg PO QAM hydrochlorothiazide 12.5 mg tablet 12.5 mg PO QAM losartan 100 mg tablet 100 mg PO QAM insulin aspart U-100 [Novolog U-100 Insulin aspart] 1 unit SUBCUT UD psyllium [Metamucil] 1 packet PO QAM Take morning of surgery With a small sip of water, OTHERWISE NOTHING TO EAT OR DRINK AFTER MIDNIGHT: olopatadine 0.1 % eye drops 1 drops OP BID PRN (if needed) triamcinolone acetonide 55 mcg/actuation nasal spray,aerosol 55 mcg INTNAS UD PRN (if needed) Take evening before surgery metformin 500 mg tablet 500 mg PO BID olopatadine 0.1 % eye drops 1 drops OP BID PRN (if needed) triamcinolone acetonide 55 mcg/actuation nasal spray,aerosol 55 mcg INTNAS UD PRN (if needed) cyanocobalamin (vitamin B-12) [Vitamin B-12] 1,000 mcg PO QPM Other Notes If you have any questions please call us at [phone] or [phone] or [phone] or [phone]
--- NOTE | 2020-09-14 13:08 | PAT Medication Instructions ---
Medication Instructions Date of Service September 14, 2020 Home Medications metformin 500 mg tablet 500 mg PO BID atorvastatin 10 mg tablet 10 mg PO Q OTHER DAY cholecalciferol (vitamin D3) 50 mcg (2,000 unit) tablet 50 mcg PO QAM coenzyme Q10 1 tab PO QAM hydrochlorothiazide 12.5 mg tablet 12.5 mg PO QAM losartan 100 mg tablet 100 mg PO QAM olopatadine 0.1 % eye drops 1 drops OP BID PRN triamcinolone acetonide 55 mcg/actuation nasal spray,aerosol 55 mcg INTNAS UD PRN turmeric 1 tab PO BID cyanocobalamin (vitamin B-12) [Vitamin B-12] 1,000 mcg PO QPM insulin aspart U-100 [Novolog U-100 Insulin aspart] 1 unit SUBCUT UD psyllium [Metamucil] 1 packet PO QAM semaglutide [Ozempic] 0.25 mg SUBCUT WK cetirizine [Zyrtec] 10 mg PO HS Continue as directed atorvastatin 10 mg tablet 10 mg PO Q OTHER DAY (OK to take on day of surgery if scheduled) semaglutide [Ozempic] 0.25 mg SUBCUT WK STOP taking 2 weeks before surgery If surgery is within 2 weeks, stop taking as soon as possible. coenzyme Q10 1 tab PO QAM turmeric 1 tab PO BID DO NOT take the morning of surgery metformin 500 mg tablet 500 mg PO BID cholecalciferol (vitamin D3) 50 mcg (2,000 unit) tablet 50 mcg PO QAM hydrochlorothiazide 12.5 mg tablet 12.5 mg PO QAM losartan 100 mg tablet 100 mg PO QAM psyllium [Metamucil] 1 packet PO QAM Take morning of surgery OTHERWISE NOTHING TO EAT OR DRINK AFTER MIDNIGHT: olopatadine 0.1 % eye drops 1 drops OP BID PRN (if needed) triamcinolone acetonide 55 mcg/actuation nasal spray,aerosol 55 mcg INTNAS UD PRN (if needed) Take evening before surgery metformin 500 mg tablet 500 mg PO BID olopatadine 0.1 % eye drops 1 drops OP BID PRN (if needed) triamcinolone acetonide 55 mcg/actuation nasal spray,aerosol 55 mcg INTNAS UD PRN (if needed) cyanocobalamin (vitamin B-12) [Vitamin B-12] 1,000 mcg PO QPM cetirizine [Zyrtec] 10 mg PO HS Insulin Dependent Diabetic Patients CONTINUE INSULIN PUMP AT BASAL RATE AND DO NOT BOLUS ON DAY OF SURGERY. Other Notes If you have any questions please call us at [phone] or [phone] or [phone] or [phone]
--- NOTE | 2020-09-15 10:53 | Anesthesiology Consultation ---
Date of Service September 15, 2020 Assessment & Plan (1) Encounter for pre-operative examination: COVID Status: As of 09/15 assessment, patient denies travel to endemic area, known exposure/sick contacts, or symptoms of COVID19. Patient instructed that they and their household members must follow strict social distancing guidelines, wear a mask in public and avoid travel/events/gatherings for 14 days prior to surgery. Preoperative COVID19 testing to be completed prior to surgery per surgeon's arrangements. Patient made aware to self-isolate as much as possible between COVID testing and surgery. S/P L3-L5 laminectomy = MAC 3, ETT 7.0, grade view 3, atraumatic ET intubation. BSG AM DOS Chart Review Chart Review: Acceptable Risk for Surgery and Patient seen in Pre Admission Testing Teaching & Discussion Instructed NPO after midnight before surgery, except medications with 15 cc of water. Medication instructions provided according to the PAT guidelines. History Surgery Operation Date: 10/12/20 07:15 Proposed Procedures p Left Total Knee Arthroplasty - Jason Prabhakar MD Height/Weight Height: 5 ft Weight: 99.7 kg Allergies Allergy/AdvReac Type Severity Reaction Status Date / Time Penicillins Allergy Intermediate BLACKED Verified 09/04/20 10:48 OUT- A CHILD codeine AdvReac Mild NAUSEA Verified 09/16/20 09:59 meperidine AdvReac Mild STARTED Verified 09/04/20 10:48 BLEEDING FROM INJECTION SITE Medications Home Medications Medication Instructions Recorded Confirmed Last Taken metformin 500 mg tablet 500 mg PO BID tab 04/22/19 09/04/20 Unknown atorvastatin 10 mg tablet 10 mg PO Q OTHER DAY 01/07/20 09/04/20 Unknown cholecalciferol (vitamin D3) 50 50 mcg PO QAM 01/07/20 09/04/20 Unknown mcg (2,000 unit) tablet coenzyme Q10 1 tab PO QAM 01/07/20 09/04/20 Unknown hydrochlorothiazide 12.5 mg tablet 12.5 mg PO QAM 01/07/20 09/04/20 Unknown losartan 100 mg tablet 100 mg PO QAM 01/07/20 09/04/20 Unknown olopatadine 0.1 % eye drops 1 drops OP BID PRN 01/07/20 09/04/20 Unknown subcutaneous insulin pump #1 ea 01/07/20 09/04/20 Unknown triamcinolone acetonide 55 55 mcg INTNAS UD PRN 01/07/20 09/04/20 Unknown mcg/actuation nasal spray,aerosol turmeric 1 tab PO BID 01/07/20 09/04/20 Unknown cyanocobalamin (vitamin B-12) 1,000 mcg PO QPM 07/06/20 09/04/20 Unknown [Vitamin B-12] insulin aspart U-100 [Novolog 1 unit SUBCUT UD 07/06/20 09/04/20 Unknown U-100 Insulin aspart] psyllium [Metamucil] 1 packet PO QAM 07/06/20 09/04/20 Unknown semaglutide [Ozempic] 0.25 mg SUBCUT WK 07/06/20 09/04/20 Unknown cetirizine [Zyrtec] 10 mg PO HS 09/04/20 09/04/20 Unknown Past Medical History Medical History Bilateral primary osteoarthritis of knee Diabetes mellitus IDDM History of basal cell carcinoma Hyperlipidemia Hypertension Insulin pump in place Lumbar stenosis Osteoporosis Exercise / Class Metabolic Activity III < 4 Walking/Shop/Light housework (Denies any chest pain or SOB with ambulat ion, uses walker in public spaces) Past Family History Family History Family/Other Diabetes Uncle Diabetes Aunt Diabetes Aunt Diabetes Other No family history of adverse response to anesthesia Past Surgical History Surgical History History of anesthesia reaction "HAD DIFFICULTY GOING OUT WITH 1 PROCEDURE" History of back surgery Pt reports discectomy, no fusion hardware. History of cervical polypectomy History of colonoscopy History of conization of cervix History of D&C History of dilation and curettage History of Mohs micrographic surgery for skin cancer Past Anesthesia History No Family Hx of Anesthesia Complications Possible h/o aspiration with one colonoscopy per pt's description. No issues with more recent surgeries (other than PONV). History of PONV No Hx of Motion Sickness and History of PONV (after lumbar surgery) Social History Smoking Status: Never smoker Do You Dip or Chew Tobacco: No Hx Alcohol Use: No substance use type: does not use Review of Systems Pt denies any recent chest pain, shortness of breath, palpitations, fever, URI. +sinus drainage/"allergies" with some coughing. +indigestion and burping since starting Ozempic Physical Exam Vital Signs BP: 124/82 P: 91bpm SPO2: 95% RA T: 98.3 F R: 16 ENMT Mouth: no dental restorations, no chipped teeth and no loose teeth Thyromental Distance: > or= 3.5 Finger Breadths Mallampati Class: III Neck + thick neck; neck extension not limited Respiratory normal respiratory effort, lungs clear to auscultation Cardiovascular RRR, no murmur, no edema Testing Laboratory Results 09/15/20 11:01 09/15/20 11:01 PT 10.8 Seconds (9.0-12.0) 09/15/20 11:01 INR 1.1 (0.9-1.1) 09/15/20 11:01 APTT 26.7 Seconds (21.0-31.0) 09/15/20 11:01 Hemoglobin A1c 6.3 % (4.5-5.6) H 09/15/20 11:01 Blood Type O Positive 09/15/20 11:01 Antibody Screen NEGATIVE 09/15/20 11:01 Electrocardiogram Date: 09/15/20 Findings: + NSR @ (80bpm) and + no change from (2018) Chest X-Ray Date: 09/15/20 Findings: + NAD
--- NOTE | 2020-09-15 11:24 | Electrocardiogram Report ---
Test Reason : Blood Pressure : / mmHG Vent. Rate : 080 BPM Atrial Rate : 080 BPM P-R Int : 148 ms QRS Dur : 088 ms QT Int : 382 ms P-R-T Axes : 072 062 073 degrees QTc Int : 440 ms Normal sinus rhythm Normal ECG When compared with ECG of 21-FEB-2018 09:42, No significant change was found Confirmed by Rebel Abel ([id number]) on 09/15/2020 11:24:11 AM Referred By: Jason Prabhakar Confirmed By:Rebel Abel
--- NOTE | 2020-09-15 11:28 | XRay Report ---
XR chest Pre-admission PA/Lat CLINICAL HISTORY: Preoperative chest COMPARISON STUDY: February 2018 FINDINGS: The cardiac and mediastinal contours are normal. There is no evidence of focal pulmonary co nsolidation. There is no evidence of failure. No pleural effusions are visualized.[There is a stable prominent right cardiophrenic angle fat pad. Degenerative changes are present within the spine IMPRESSION: No active disease in the chest. ACT 112: Negative or not required by law. Electronically signed by: Bryan Muhammad M.D. 09/15/2020 11:27 AM
[2020-09-15 11:29] LABS: Basophils # (auto) 0.03 K/uL (0-0.2); Basophils % (auto) 0.3 %; Eosinophils # (auto) 0.19 K/uL (0-0.5); Eosinophils % (auto) 1.6 %; Hematocrit (blood only) 44.4 % (37-47); Hemoglobin 15.1 g/dL (12.0-16.0); Immature Granulocytes # (auto) 0.02 K/uL (0.00-0.02); Immature Granulocytes % (auto) 0.2 %; Lymphocytes # (auto) 2.31 K/uL (1.2-3.4); Lymphocytes % (auto) 19.4 %; Mean Corpuscular Hemoglobin 30.3 pg (25-34); Mean Platelet Volume 11.4 fL (7.4-10.4); Monocytes # (auto) 0.97 K/uL (0.11-0.59); Monocytes % (auto) 8.1 %; Neutrophils % (auto) 70.4 %; Platelet Count 315 K/uL (130-400); RDW Standard Deviation 45.8 fL (36.4-46.3); Red Blood Count 4.99 M/uL (4.2-5.4); White Blood Count 11.92 K/uL (4.8-10.8)
[2020-09-15 11:42] LABS: INR 1.1 (0.9-1.1); Partial Thromboplastin Time 26.7 Seconds (21.0-31.0); Prothrombin Time 10.8 Seconds (9.0-12.0)
[2020-09-15 12:14] LABS: Estimated Average Glucose 134 mg/dl; Hemoglobin A1C 6.3 % (4.5-5.6)
[2020-09-15 12:34] LABS: BUN Creatinine Ratio 16.3 (10-20); Calcium 8.9 mg/dl (8.5-10.1); Creatinine Clr Calc Pharmacy 44.3 ml/min; Est GFR (African American) 55.1; Est GFR (Non-African American) 47.5; Potassium 3.6 mmol/L (3.5-5.1)
--- NOTE | 2020-10-09 20:43 | History and Physical Report ---
DATE OF ADMISSION: 10/12/2020 CHIEF COMPLAINT: Bilateral knee pain and discomfort. HISTORY OF PRESENT ILLNESS: The patient is a 80-year-old white female referred by my partner, Dr. Barrios for treatment of her knees. She has got a long history of bilateral knee pain and discomfort, which tend to vary from one knee to the other, which is worse. She has been through extensive conservative treatment including injections, which provide temporary relief only. She has had to resort to using a cane to get around due to her pain. The right side was bothering her more than the left and she was scheduled for knee replacement, but the left knee is now bothering her more, she would like to have her left knee replaced. It is global pain. The more she is up and walks, the more it hurts. Limps more as the day goes on. PAST MEDICAL HISTORY: 1. Hypertension. 2. Elevated cholesterol. 3. Diabetes x28 years with A1c of 6.3. 4. Obesity, BMI of 43. 5. Low back pain/sciatica. 6. Skin cancer. PAST SURGICAL HISTORY: Includes back surgery by Dr. Dumont in 02/2018. ALLERGIES: PENICILLIN, WHICH CAUSES A RASH. SHE GETS NAUSEA WITH CODEINE AND DEMEROL. CURRENT MEDICINES: Include, 1. Atorvastatin. 2. Zyrtec. 3. Vitamin D3. 4. Coenzyme Q. 5. Hydrochlorothiazide. 6. Losartan. 7. Metformin. 8. Ozempic. 9. Insulin pump. 10. Turmeric. SOCIAL HISTORY: A 80-year-old female. She is . She is from [place]. Does not smoke. No alcohol intake. FAMILY HISTORY: Noncontributory. REVIEW OF SYSTEMS: Significant for long-term diabetes. Denies any chest pain or shortness of breath. No history of DVT or PE. No known bleeding problems. PHYSICAL EXAMINATION: GENERAL: Shows a pleasant elderly female. Looks to be in pretty good health. HEENT: Benign. NECK: Supple, no lymphadenopathy. LUNGS: Clear to auscultation. HEART: Has a regular rate and rhythm. ABDOMEN: Soft, nontender, nondistended. EXTREMITIES: Grossly neurovascularly intact except as follows: Examination of both knees reveals the patient walks with use of a cane. Examination of the left knee reveals slight valgus alignment to the knee, which is a little bit worse with weightbearing. Small knee effusion. She is tender over the lateral joint line. Range of motion is 5-120. No instability. Examination of the right knee reveals a slight varus alignment. Tender over the medial joint line. Small knee effusion. Range of motion 5-115. No instability. X-RAYS: X-rays of both knees were reviewed. It shows advanced bilateral knee DJD. The right knee has more medial compartment disease and the left knee has more lateral compartment disease. She has got osteophytes in all 3 compartments in both knees. She has got some chondrocalcinosis. ASSESSMENT: A 80-year-old white female with several medical comorbidities including obesity, elevated cholesterol, long-term diabetes, low back pain/sciatica and hypertension with advanced bilateral knee degenerative joint disease. She failed conservative treatment. We initially planned on doing the right knee, but she would like to do the left knee first. PLAN: We will take her to the operating room and do a left total knee replacement. The risks and benefits of this procedure were explained to the patient including but not limited to DVT, PE, , infection, neurological injury, vascular injury, bleeding problem, pain, limited range of motion, stiffness, failure to relieve her symptoms, incomplete relief of symptoms, need for further surgery in the future, fracture, leg length inequality, nerve palsy, etc. The patient understands and desires to proceed. Informed consent was obtained. As far as medicines, she will need to hold the metformin on the morning of surgery. She does not do well with narcotics, we will use Tylenol and tramadol and limited Toradol. Avoid oxycodone due to nausea. She will need insulin sliding scale coverage. As far as discharge plans, she is planning to be discharged to home using [facility] home health program and her 's assistance.
[~2020-10-12 06:08] MED LIST changes: +ACETAMINOPHEN 500 MG TAB PO SCH; -ATOR10TA82 PO; +BUPIVACAINE LIPOSOME/PF 266 MG, BUPIVACAINE/EPINEPHRINE 50 ML, SODIUM CHLORIDE 0.9% 30 ... INFIL SCH; -CHOL1000 PO; -COQ10 PO; +FAMOTIDINE 20 MG TAB PO SCH; -FSMD/70 PO; +GABAPENTIN 300 MG CAP PO SCH; -GLC/500 PO; -IBUP-103 PO; -INSPMPRG; -LOSARTAN HCTZ PO; +LR 500ML BOLUS, THEN 15ML/HR IV SCH; +LR 60ML/HR IV SCH; -MELO7.5T5 PO; +METOCLOPRAMIDE HCL 10 MG TABLET PO SCH; -PSYL0.524 PO; -PTDOPS OP; +TRANEXAMIC ACID 1,000 MG **IV Intra-op IV SCH; -TRIA1SPR4 INTNAS; -TURMERIC PO; +VANCOMYCIN HCL 1,500 MG in SODIUM CHLORIDE 0.9% 500 ML IV SCH
--- NOTE | 2020-10-12 06:52 | History & Physical Bridge Note ---
Date of Service October 12, 2020 History & Physical Bridge Note I have examined the patient, reviewed the History & Physical and in the interval since the performance of the History & Physical I have noted the following changes of clinical significance: no changes noted
[2020-10-12] MEDS ORDERED: BUPIVACAINE 0.25% 30 ML VIAL ONE ×2 (07:35→08:53)
[2020-10-12] MEDS ORDERED: BUPIVACAINE 0.5 % 5 MG/1 ML PF 10ML VIAL ONE (07:35)
[2020-10-12] MEDS ORDERED: MIDAZOLAM HCL 1 MG/ML 2ML VIAL ONE (07:46)
[2020-10-12] MEDS ORDERED: ATROPINE SULFATE 0.1 MG/ML 10ML SYR IV PRN (08:22)
[2020-10-12] MEDS ORDERED: ONDANSETRON INJ 2 MG/ML 2 ML VIAL IV PRN ×2 (08:22→12:01)
[2020-10-12] MEDS ORDERED: ePHEDrine sulfate 50 MG/ML AMP IV PRN (08:22)
[2020-10-12] MEDS ORDERED: fentaNYL citrate 100 MCG/2 ML VIAL IV PRN (08:22)
[2020-10-12] MEDS ORDERED: SODIUM CHLORIDE 0.9% PF 50 ML VIAL ONE (08:52)
[2020-10-12] MEDS ORDERED: BUPIVACAINE LIPOSOME 1.3% 266 MG/20 ML VIAL ONE (08:52)
[2020-10-12] MEDS ORDERED: BACITRACIN INJ 50,000 UNIT VIAL ONE (08:52)
[2020-10-12] MEDS ORDERED: EPINEPHrine INJ 1 MG/ML AMP ONE (08:53)
[2020-10-12] MEDS ORDERED: LIDOCAINE HCL 2% 2 ML VIAL/AMP(20MG/ML) INFIL ONE (10:00)
[2020-10-12] MEDS ORDERED: PROPOFOL IV EMULSION 10 MG/ML 20 ML VIAL IV ONE (10:00)
[2020-10-12] MEDS ORDERED: ePHEDrine sulfate 50 MG/ML SYR ONE (10:00)
--- NOTE | 2020-10-12 11:13 | Operative Report ---
Post Operative Report Pre & Post Diagnosis Operation Date: 10/12/20 08:50 Pre-Op Diagnosis: Left Knee Osteoarthritis Post-Op Diagnosis: Left Knee Osteoarthritis I identified the patient and participated in the time-out.: Yes Procedure Operation Date: 10/12/20 08:50 Actual Procedures p Left Total Knee Arthroplasty, Cemented(Left) - Jason Prabhakar MD Surgeon Jason Prabhakar MD Silk Screen Processor [place] Jay Estimated Blood Loss 50 Findings Consistent with Post-Op Diagnosis Operative findings were advanced left knee tricompartment DJD. She had pretty extensive grade 4 [id number] disease in all 3 compartments most severe laterally. Moderate-sized joint effusion. Moderate to large soft tissue envelope. Fluids 400 cc. Specimens Left knee sent for pathology. Drains None. Anesthesia Type Spinal MAC Complications none Disposition Accompanied Patient To Recovery: No Disposition: Recovery Room Indications Patient is a 80-year-old female has had a several year history of increasing bilateral knee pain discomfort which is kind of varied from 1 day to the other. She been through extensive conservative treatments became less successful over time. Her left knee has been by the more than the right. She elected to left total knee arthroplasty. X-rays revealed fairly advanced left knee tricompartment DJD. Description of Procedure Operative implants consist of: 1 Biomet Vanguard size 62.5 left posterior stabilized femoral component. 2. Biomet size 67 tibial tray. 3. 10 mm posterior stabilized polyethylene insert. 4. 25 x 8 all polypatella. The patient was taken the operating, identified, and placed on the operating ta ble supine position but all contractors were properly padded. IV antibiotics 5 by anesthesia team. A spinal anesthetic and abductor canal block had provided in the holding area. Orozco catheter was placed in sterile fashion. Left thigh turn was then placed in the left lower extremities and prepped and draped in usual sterile fashion. The left leg was elevated and exsanguinated with use of an Esmarch and turns placed at 300 mmHg. An anterior approach to the left knee was then performed to longitudinal incision centered over the patella. Sharp dissection was got through subcutaneous tissue down the extensor mechanism. She did have a fairly thick soft tissue envelope. A medial parapatellar arthrotomy incision was made. Some subperiosteal dissection was carried out medially. The fat pad was resected from each patella tendon. The lateral patellofemoral ligament was released. Patella was subluxated laterally and the knee was flexed. The osteophytes were taken off distal femur. The ACL and PCL were then released from the distal femur and the tibia subluxated anteriorly. The external treatment line jig was then placed in the interface the tibia and adjusted 12 mm medially. Proximal tibial cut was made to move out 2 to 3 mm of bone from the medial side. Tibia sized to a size 67. I tried to maximize her tibial coverage while maintaining appropriate rotation. Attention drawn the femur. The distal femur examined the sharp drill. Intramedullary canal was suction. A left 5degree valgus cutting guide was placed. The distal femoral cutting block was pinned in place. The distal femoral cut was made to take an additional 5 mm off distal femur is a +3 cut did not quite even get to the base of the notch. The femur was then sized to a size 62.5. It was downsized just slightly. The AP cutting block was pinned parallel to the epicondylar axis which was 5 degrees of external rotation. Anterior cut, anterior chamfer, posterior cut, posterior chamfer cuts were made. Box cutting guide was placed in just slight lateral box cut was made. The knee was flexed. The remnants of the medial and lateral menisci were excised. The osteophytes were taken off the posterior aspect the femur. Trial femoral component was placed. The tibial tray was pinned in maximum external rotation and the drill and stem punch were used to create defect in proximal tibia for the tibial tray. The knee was then trialed and the 10 mm insert fit most appropriately. Attention drawn the patella. Nipride the patella was cleaned of all soft tissues. Patella thickness measured 22 mm in thickness was cut down to 12. Was sized to a size 25 patella. Her kneecap was quite small. Lug holes were drilled for the 25 patella. The lateral osteophyte was removed. Patella button was placed. Knee was taken through range of motion patella tracked nicely with no thumbs. Attention drawn to placing permanent components. All trial components were removed. Bone plug was placed in the distal femur limit blood loss. Double batch Palacos G cement was mixed. A Biomet Vanguard size 62.5 left posterior stabilized femoral component, size 67 tibial tray, a 10 mm posterior stabilized polyethylene insert, and a 25 x 8 all polypatella then cemented in place. Knee was brought out into full extension total cement hardened. Final cement check was then performed. Pericapsular tissues were injected with total 100 cc of combination of 20 cc of Exparel, 30 cc normal saline, 50 cc of quarter percent Marcaine with epinephrine. Patient did receive 1 g tranexamic acid. The tourniquet was then let down for final turn time 57 minutes but hemostasis surgery was electrocautery. The extensor macros then closed with combination 1 PDS suture #1 Vicryl suture in [id number] fashion. Extensor mechanism checked found to be intact the subcutaneous tissue then closed with 2 Dexon suture in a buried interrupted fashion skin was closed skin noe. Legs then cleaned dried a sterile dressed composed Xeroform, 4 x 4's, sterile cast padding, Shakir bandage were applied. Patient then transferred to the recovery room in stable condition per the patient tolerated the procedure well and there were no complications. Seamus Jay, my physician assistant corporation counsel, was present for the entire procedure. His assistance was essential and required for appropriate patient positioning, prepping and draping, surgical exposure, performing the technical details of the operation, placement the implants, closure of the wound, and placement of the sterile bandage. I attest to the content of the Intraoperative Record and any orders documented therein. Any exceptions are noted below.
--- NOTE | 2020-10-12 11:26 | XRay Report ---
XR knee LT 1 or 2V routine CLINICAL HISTORY: Postoperative evaluation. COMPARISON: Knee radiographs June 29, 2020. FINDINGS: Alignment of the total left knee arthroplasty is anatomic. There is no periprosthetic frac ture or unexpected radiopaque foreign body. There are skin noe. IMPRESSION: Expected findings following total left knee arthroplasty. ACT 112: Negative or not required by law. Electronically signed by: Esteban Lagn M.D. 10/12/2020 11:25 AM
--- NOTE | 2020-10-12 11:43 | Anesthesiology Progress Note ---
Date of Service October 12, 2020 Anesthesia Post Procedure Vital Signs Vital Signs: Temp Pulse Pulse Resp BP BP Pulse Ox 10/12/20 11:30 76 18 127/56 L 97 10/12/20 11:20 81 20 136/55 L 96 10/12/20 11:10 83 20 131/56 L 97 10/12/20 11:02 36.4 C L 85 16 134/55 L 96 10/12/20 07:55 69 20 151/72 H 93 10/12/20 07:01 37.1 C 75 20 160/93 H 94 Pain Intensity Left Knee: Pain Intensity: 2 Transfer of Care Handoff Completed per policy Notes Mental Status: alert / awake / arousable and participated in evaluation Nausea / Vomiting: adequately controlled Pain: adequately controlled Airway Patency, RR, SpO2: stable & adequate BP & HR: stable & adequate Hydration State: stable & adequate Neuraxial Anesthesia: was administered and sensory block is resolving Anesthetic Complications: no major complications apparent and Pt Satisfied with anesthetic care
[2020-10-12] MEDS ORDERED: GLUCOSE 40% GEL 15 GM TUBE PO PRN ×2 (12:01→12:15)
[2020-10-12] MEDS ORDERED: NON-FORMULARY MEDICATION (Semaglutide [Ozempic] 0.25 mg or 0.5 mg(2 mg/1.5 mL) Pen Injecto SQ SCH (12:01)
[2020-10-12] MEDS ORDERED: CARBOHYDRATES FOR HYPOGLYCEMIA PO PRN ×2 (12:01→12:15)
[2020-10-12] MEDS ORDERED: GLUCOSE 10 TABS/TUBE PO PRN ×2 (12:01→12:15)
[2020-10-12] MEDS ORDERED: bisacodyL 10 MG SUPP PR PRN (12:01)
[2020-10-12] MEDS ORDERED: DEXTROSE 50% 50 ML SYRINGE IV PRN ×2 (12:01→12:15)
[2020-10-12] MEDS ORDERED: NALOXONE HCL 0.4 MG/1 ML VIAL/CARP IV PRN (12:01)
[2020-10-12] MEDS ORDERED: MAGNESIUM HYDROXIDE SUSP 30 ML UDC PO PRN (12:01)
[2020-10-12] MEDS ORDERED: ALUMINUM/MAGNESIUM SUSP 30 ML UDC PO PRN (12:01)
[2020-10-12] MEDS ORDERED: METOCLOPRAMIDE HCL INJ 5 MG/ML 2 ML VIAL IV PRN (12:01)
[2020-10-12] MEDS ORDERED: GLUCAGON FOR INJ 1 MG VIAL SQ PRN ×2 (12:01→12:15)
[2020-10-12] MEDS ORDERED: VANCOMYCIN CONSULT ACTIVE PRN (12:01)
[2020-10-12] MEDS ORDERED: HYDROmorphone INJ 0.5 MG/0.5 ML SYR IV PRN (12:01)
[2020-10-12] MEDS: SODIUM CHLORIDE 0.9% 1000ML 1,000 ML IV SCH ×2 (12:07→22:35)
[2020-10-12] MEDS ORDERED: PHARMACY GLYCEMIC MGMT CONSULT PRN (12:13)
[2020-10-12] MEDS ORDERED: INSULIN ASPART 100 UNITS/ML VIAL SC PRN (12:15)
--- NOTE | 2020-10-12 14:09 | Pharmacy Report ---
Pharmacy Glycemic Short Note 2 - Date of Service October 12, 2020 - Glycemic Short BSG Results (Last 24 hours): 10/12/20 10/12/20 10/12/20 06:35 08:24 11:05 POC Glucose 183 H 159 H 142 H 10/12/20 12:10 POC Glucose 117 H OUTPATIENT ANTIDIABETIC REGIMEN: * Novolog insulin pump * Metformin 500 mg PO BIDM * Ozempic SC weekly on Sundays * HbA1c: 6.3% (09/15/20) ASSESSMENT: * KL is a 80 year old female POD #0 s/p left total knee arthroplasty * Did not receive any intra-operative steroids * Patient has long-standing T2DM, controlled with Novolog insulin pump * Pump was continued perioperatively and BSGs have remained reasonably well- controlled at 183, 159, and 142 mg/dL * Patient comfortable continuing to manage insulin via pump while inpatient PLAN FOR INPATIENT GLYCEMIC CONTROL: * Hold outpatient oral diabetes medications * Pt is to manage BSGs with insulin pump per outpatient settings. * RN will have patient read and sign agreement [id number] Insulin Pump Therapy Patient Agreement. * RN will provide and explain form [id number] Flowsheet for Patient * Patient will document their insulin dose given on NS-824 which is kept at the bedside, available to caregivers upon request, and which becomes part of the permanent medical record. * If at any time the patients condition evidences that he/she is not able to manage the insulin pump (i.e. frequent hypo/hyperglycemia) Pharmacy will assume glycemic control by discontinuing the pump & managing with SQ basal bolus insulin regimen for the interim. PLAN FOR DISCHARGE: * HbA1c of 6.3% is at goal - continue current home regimen
[2020-10-12] MEDS: KETOROLAC TROMETHAMINE 15 MG/ML VIAL IV SCH ×2 (14:11→20:15)
[2020-10-12] MEDS: ACETAMINOPHEN 500 MG TAB PO SCH ×2 (14:11→22:35)
--- NOTE | 2020-10-12 15:08 | Progress Notes ---
DATE: 10/12/2020 SUBJECTIVE: A 80-year-old white female postop from a left knee replacement. She is doing well. Having some pain but manageable. No chest pain or shortness of breath. Not feeling dizzy or lightheaded. OBJECTIVE: VITAL SIGNS: Temperature 36.4. Vital signs stable. GENERAL: Shows a pleasant, elderly female. She is sitting up on bed, looks pretty comfortable this afternoon. LUNGS: Clear to auscultation. HEART: Has a regular rate and rhythm. ABDOMEN: Soft, nontender, nondistended. EXTREMITIES: Grossly neurovascularly intact except as follows. Examination of the left leg reveals the leg to be well aligned. Dressing is clean, dry and intact. She can dorsiflex and plantarflex her foot appropriately. Her toes are pink with brisk refill. X-RAYS: X-rays of the left knee from recovery room are reviewed. It shows a left cemented posterior stabilized total knee arthroplasty. Components looked to be in good position. No signs of problems. ASSESSMENT: A 80-year-old white female postop from a left knee replacement, doing well. Her pain is controlled. She is neurologically intact. PLAN: 1. DVT prophylaxis including thigh-high TEDs, SCDs, and aspirin twice a day. 2. PT/OT. Weight bear as tolerated. Left total knee protocol. 3. Pain control, doing okay with current pain regimen. 4. IV antibiotics x24 hours. 5. Disposition: Plan to discharge to home with some home health and her 's assistance once medically stable, pain controlled and doing okay rehabilitation urbina.
[2020-10-12] MEDS: traMADol HCL 50 MG TABLET PO PRN (16:16)
[2020-10-12] MEDS ORDERED: TRANEXAMIC ACID / 0.7% NACL 1,000 MG/100 ML BAG IV SCH (17:04)
[2020-10-12] MEDS: ASCORBIC ACID 500 MG TAB PO SCH (17:31)
[2020-10-12] MEDS: FERROUS GLUCONATE 324 MG TAB PO SCH (17:31)
[2020-10-12] MEDS: NovoLOG INSULIN PUMP SCH ×2 (17:43→22:43)
[2020-10-12] MEDS ORDERED: VANCOMYCIN HCL 1,500 MG in SODIUM CHLORIDE 0.9% 500 ML IV SCH (20:00)
[2020-10-12] MEDS: ASPIRIN 81 MG ECTAB PO SCH (20:15)
[2020-10-12] MEDS: DOCUSATE SODIUM 100 MG CAP PO SCH (20:15)
[2020-10-12] MEDS ORDERED: CYANOCOBALAMIN 500 MCG TABLET (VITAMIN B-12) PO SCH (21:00)
[2020-10-12] MEDS ORDERED: NON-FORMULARY MEDICATION (Turmeric 1 TAB) PO SCH (21:00)
[2020-10-12] MEDS ORDERED: SENNA 8.6 MG TAB PO SCH (21:00)
[2020-10-12] MEDS ORDERED: CETIRIZINE HCL 10 MG TABLET PO SCH (21:00)
[2020-10-13] MEDS: KETOROLAC TROMETHAMINE 15 MG/ML VIAL IV SCH ×3 (02:33→13:58)
[2020-10-13] MEDS: ACETAMINOPHEN 500 MG TAB PO SCH ×2 (05:48→13:57)
[2020-10-13 06:33] LABS: Hematocrit (blood only) 36.4 % (37-47); Hemoglobin 12.2 g/dL (12.0-16.0); Mean Corpuscular Hemoglobin 29.5 pg (25-34); Mean Corpuscular Hgb Conc 33.5 g/dL (32-36); Mean Corpuscular Volume 88.1 fL (80-100); Mean Platelet Volume 11.3 fL (7.4-10.4); Platelet Count 244 K/uL (130-400); RDW Coefficient of Variation 14.3 % (11.5-14.5); RDW Standard Deviation 46.5 fL (36.4-46.3); Red Blood Count 4.13 M/uL (4.2-5.4); White Blood Count 9.47 K/uL (4.8-10.8)
[2020-10-13 07:07] LABS: Calcium 7.9 mg/dl (8.5-10.1); Creatinine Clr Calc Pharmacy 38.7 ml/min; Est GFR (African American) 46.8; Est GFR (Non-African American) 40.4; Potassium 3.7 mmol/L (3.5-5.1)
--- NOTE | 2020-10-13 08:05 | Anesthesiology Progress Note ---
Date of Service October 13, 2020 Anesthesia Post Procedure Vital Signs Vital Signs: Temp Pulse Pulse Resp BP BP Pulse Ox 10/13/20 02:29 36.5 C 74 16 138/78 93 10/12/20 23:00 36.4 C L 78 16 161/71 H 93 10/12/20 19:36 145/76 H 10/12/20 19:13 36.6 C 69 15 150/82 H 96 10/12/20 15:00 36.3 C L 71 18 159/71 H 95 10/12/20 14:14 67 16 156/71 H 95 10/12/20 12:56 67 16 147/63 H 96 10/12/20 12:27 69 18 134/71 94 10/12/20 12:00 36.4 C L 73 18 134/68 94 10/12/20 11:30 76 18 127/56 L 97 10/12/20 11:20 81 20 136/55 L 96 10/12/20 11:10 83 20 131/56 L 97 10/12/20 11:02 36.4 C L 85 16 134/55 L 96 Pain Intensity Left Knee: Pain Intensity: 2 Notes Mental Status: alert / awake / arousable Patient Amnestic to Procedure: Yes Nausea / Vomiting: adequately controlled Pain: adequately controlled Airway Patency, RR, SpO2: stable & adequate BP & HR: stable & adequate Hydration State: stable & adequate Neuraxial Anesthesia: was administered and sensory block resolved Anesthetic Complications: no major complications apparent and Pt Satisfied with anesthetic care
[2020-10-13] MEDS: NovoLOG INSULIN PUMP SCH ×2 (08:41→12:58)
[2020-10-13] MEDS: FERROUS GLUCONATE 324 MG TAB PO SCH (08:43)
[2020-10-13] MEDS: ASCORBIC ACID 500 MG TAB PO SCH (08:44)
[2020-10-13] MEDS: DOCUSATE SODIUM 100 MG CAP PO SCH (08:44)
[2020-10-13] MEDS: ASPIRIN 81 MG ECTAB PO SCH (08:45)
[2020-10-13] MEDS: traMADol HCL 50 MG TABLET PO PRN (08:58)
[2020-10-13] MEDS ORDERED: COENZYME Q10 PO SCH (09:00)
[2020-10-13] MEDS ORDERED: ATORVASTATIN 10 MG TAB PO SCH (09:00)
[2020-10-13] MEDS ORDERED: hydroCHLOROthiazide 25 MG TAB PO SCH (09:00)
[2020-10-13] MEDS ORDERED: LOSARTAN POTASSIUM 50 MG TAB PO SCH (09:00)
[2020-10-13] MEDS ORDERED: PSYLLIUM 58.6% POWDER PACKET PO SCH (09:00)
[2020-10-13] MEDS ORDERED: CHOLECALCIFEROL 1,000 UNITS 25 MCG TAB PO SCH (09:00)
[2020-10-13] MEDS ORDERED: MULTIVITAMIN TAB PO SCH (09:00)
--- NOTE | 2020-10-13 10:46 | Progress Notes ---
DATE: 10/13/2020 SUBJECTIVE: A 80-year-old white female postop day 1 from a left knee replacement. She is doing pretty well. Not much pain lying in bed, but pretty painful with activity. No chest pain or shortness of breath. Not feeling dizzy or lightheaded. OBJECTIVE: VITAL SIGNS: Temperature 37.1. Vital signs stable. GENERAL: Shows a pleasant elderly female. She is sitting up in bed, looks pretty comfortable. EXTREMITIES: Examination of the left leg reveals the leg to be well aligned. She can dorsiflex and plantarflex her foot appropriately. Toes are pink with brisk refill. She is neurologically intact. LABORATORY DATA: Hemoglobin 12.2. Hematocrit 36.4. Electrolytes are fairly stable. Creatinine is just slightly elevated at 1.27, which is around baseline. ASSESSMENT: A 80-year-old white female postoperative day 1 from a left knee replacement, doing reasonably well. Pain is reasonably well controlled. She is neurologically intact. Creatinine is just slightly elevated, but pretty much around baseline. PLAN: 1. DVT prophylaxis including thigh-high TEDs, SCDs, and aspirin twice a day. 2. PT/OT. She can weightbear as tolerated. Left total knee protocol. 3. Pain control, doing okay with current pain regimen. 4. Elevated creatinine. We will encourage p.o. intake. 5. Disposition: Plan to discharge to home with some home health. We will see how she does in therapy today.
--- NOTE | 2020-10-16 06:33 | Discharge Summary ---
Date of Service October 16, 2020 Discharge Data Procedures Performed Operation Date: 10/12/20 08:50 Actual Procedures p Left Total Knee Arthroplasty, Cemented(Left) - Jason Prabhakar MD Hospital Course (1) Status post total left knee replacement: This patient is a 80 year old female admitted on 10/12/20 and underwent total knee arthroplasty. She tolerated the procedure well and there were no complications. Transferred to the PACU post op and later to the orthopedic floor for further care. She was given vancomycin for antibiotic prophylaxis. She was also given AUGUST stockings, SCDs, and aspirin for DVT prophylaxis. Hemoglobin, hematocrit, and vital signs were monitored during her hospital stay and remained stable. Did not require any blood transfusions. There were no complications during her hospital stay. By post op day #1 the patient was tolerating a diabetic diet, pain was reasonably controlled with oral pain medicine, and she was participating in physical therapy. On post op day #1 the patient was discharged home and set up with home health care. She was given printed discharge instructions including prescriptions for extra strength tylenol, aspirin, and tramadol. Continue physical therapy, weight bearing as tolerated. Continue AUGUST stockings. Follow up approximately 2 weeks post op or sooner if there are problems or concerns. Coding Level of Care Code None Diagnoses Status post total left knee replacement Z96.652
== END 2020-10-13 15:06 | disposition home health service (06) ==
LOC: 3E 06:08 → ASU 06:08

== ENCOUNTER 2021-12-09 09:47 | Observation (INO) ==
--- NOTE | 2021-11-11 15:48 | PAT Medication Instructions ---
Medication Instructions Date of Service November 11, 2021 Home Medications Medication Instructions Recorded clindamycin HCl 300 mg capsule 300 mg PO ONCE #2 cap 05/17/21 metformin 500 mg tablet 500 mg PO BID atorvastatin 10 mg tablet 10 mg PO Q OTHER DAY cholecalciferol (vitamin D3) 50 mcg (2,000 unit) tablet (Vitamin D3) 50 mcg PO QAM hydrochlorothiazide 12.5 mg tablet 12.5 mg PO QAM losartan 100 mg tablet 100 mg PO QAM olopatadine 0.1 % eye drops (Pataday Twice Daily Relief) 1 drops OP BID PRN triamcinolone acetonide 55 mcg/actuation nasal spray,aerosol 55 mcg INTNAS UD PRN insulin aspart U-100 100 unit/mL subcutaneous solution (Novolog U-100 Insulin aspart) 1 unit SUBCUT UD psyllium 1 packet PO QAM semaglutide (Ozempic) 0.25 mg SUBCUT WK cetirizine 10 mg tablet (Zyrtec) 10 mg PO HS clindamycin HCl 300 mg capsule 300 mg PO ONCE acetaminophen 500 mg capsule 1,000 mg PO HS coQ10 (ubiquinol) 100 mg capsule 100 mg PO QAM prednisolone acetate 1 % eye drops,suspension 1 drp OPL [id number] Continue as directed prednisolone acetate 1 % eye drops,suspension 1 drp OPL [id number] semaglutide (Ozempic) 0.25 mg SUBCUT WK clindamycin HCl 300 mg capsule 300 mg PO ONCE (prior to dental procedures) STOP taking 2 weeks before surgery (or as soon as possible if surgery is within 2 weeks) coQ10 (ubiquinol) 100 mg capsule 100 mg PO QAM DO NOT take the morning of surgery metformin 500 mg tablet 500 mg PO BID cholecalciferol (vitamin D3) 50 mcg (2,000 unit) tablet (Vitamin D3) 50 mcg PO QAM hydrochlorothiazide 12.5 mg tablet 12.5 mg PO QAM losartan 100 mg tablet 100 mg PO QAM psyllium 1 packet PO QAM Take morning of surgery With a small sip of water, OTHERWISE NOTHING TO EAT OR DRINK AFTER MIDNIGHT: atorvastatin 10 mg tablet 10 mg PO Q OTHER DAY (if scheduled to take day of surgery) olopatadine 0.1 % eye drops (Pataday Twice Daily Relief) 1 drops OP BID PRN (if needed) triamcinolone acetonide 55 mcg/actuation nasal spray,aerosol 55 mcg INTNAS UD PRN (if needed) Take evening before surgery metformin 500 mg tablet 500 mg PO BID olopatadine 0.1 % eye drops (Pataday Twice Daily Relief) 1 drops OP BID PRN (if needed) triamcinolone acetonide 55 mcg/actuation nasal spray,aerosol 55 mcg INTNAS UD PRN (if needed) cetirizine 10 mg tablet (Zyrtec) 10 mg PO HS acetaminophen 500 mg capsule 1,000 mg PO HS Insulin Dependent Diabetic Patients For insulin pump, set to basal rate and do not bolus morning of surgery unless told otherwise by prescriber Other Notes If you have any questions please call us at [phone] or [phone] or [phone] or [phone]
--- NOTE | 2021-11-15 10:35 | Anesthesiology Consultation ---
Date of Service November 15, 2021 Assessment & Plan (1) Encounter for pre-operative examination: - COVID screening: Per assessment on 11/15: No known COVID-19 positive contacts or current COVID-19 related symptoms. Travel screen negative. Patient vaccinated. Surgeon arranging preop COVID testing. Awaiting results. - Check BSG AM DOS - S/P Left TKA (10/12/20): SAB at L3 x 1 attempt + PNB at [facility]. No issues per post-op anesthesia progress note. - S/P L3-L5 laminectomy (03/01/2018): Grade 3 view, MAC 3, ETT 7.0 atraumatic at [facility]. No post-op issues per anesthesia progress note. - Preop EKG: Preop EKG performed 11/15/21 showed Unusual P axis, possible ectopic atrial rhythm. Case/PMHX/prior EKGs reviewed with Dr. Galarza. He feels that patient acceptable risk to proceed with surgery without further cardiac evaluation and/or testing. At anesthesiologist discretion AM DOS if updated EKG needed from their perspective. Chart Review Chart Review: Acceptable Risk for Surgery (pending evaluation AM DOS) and Patient seen in Pre Admission Testing Teaching & Discussion Pre-Anesthesia Teaching/Discussion Notes: Instructed NPO after midnight before surgery,except medications with 15 cc of water. Medication instructions provided according to the PAT guidelines. History Surgery Operation Date: 12/09/21 12:50 Proposed Procedures p Right Total Knee Arthroplasty - Jason Prabhakar MD Height/Weight Height: 5 ft Weight: 102 kg Allergies Allergy/AdvReac Type Severity Reaction Status Date / Time Penicillins AdvReac Intermediate Blacked Verified 11/15/21 10:34 out (as child) codeine AdvReac Mild Nausea Verified 11/15/21 10:34 meperidine AdvReac Mild Bleeding Verified 11/15/21 10:34 from injection site Medications Home Medications Medication Instructions Recorded Confirmed Last Taken metformin 500 mg tablet 500 mg PO BID tab 04/22/19 11/11/21 Unknown atorvastatin 10 mg tablet 10 mg PO Q OTHER DAY 01/07/20 11/11/21 Unknown cholecalciferol (vitamin D3) 50 50 mcg PO QAM 01/07/20 11/11/21 Unknown mcg (2,000 unit) tablet (Vitamin D3) hydrochlorothiazide 12.5 mg tablet 12.5 mg PO QAM 01/07/20 11/11/21 Unknown losartan 100 mg tablet 100 mg PO QAM 01/07/20 11/11/21 Unknown olopatadine 0.1 % eye drops 1 drops OP BID PRN 01/07/20 11/11/21 Unknown (Pataday Twice Daily Relief) subcutaneous insulin pump #1 ea 01/07/20 07/12/21 Unknown triamcinolone acetonide 55 55 mcg INTNAS UD PRN 01/07/20 11/11/21 Unknown mcg/actuation nasal spray,aerosol insulin aspart U-100 100 unit/mL 1 unit SUBCUT UD 07/06/20 11/11/21 Unknown subcutaneous solution (Novolog U-100 Insulin aspart) psyllium 1 packet PO QAM 07/06/20 11/11/21 Unknown semaglutide (Ozempic) 0.25 mg SUBCUT WK 07/06/20 11/11/21 Unknown cetirizine 10 mg tablet (Zyrtec) 10 mg PO HS 09/04/20 11/11/21 Unknown clindamycin HCl 300 mg capsule 300 mg PO ONCE #2 cap 05/17/21 11/11/21 Unknown acetaminophen 500 mg capsule 1,000 mg PO HS 11/11/21 11/11/21 Unknown coQ10 (ubiquinol) 100 mg capsule 100 mg PO QAM 11/11/21 11/11/21 Unknown prednisolone acetate 1 % eye 1 drp OPL [id number] 11/11/21 11/11/21 Unknown drops,suspension Past Medical History Medical History Bilateral primary osteoarthritis of knee Diabetes mellitus IDDM History of basal cell carcinoma Hyperlipidemia Hypertension Insulin pump in place Lumbar stenosis Morbid obesity Osteoporosis Exercise / Class Metabolic Activity III < 4 Walking/Shop/Light housework Past Family History Family History Family/Other Diabetes Uncle Diabetes Aunt Diabetes Aunt Diabetes Other No family history of adverse response to anesthesia Past Surgical History Surgical History History of anesthesia reaction Difficulty with anesthesia induction "many years ago" History of back surgery L3-L5 laminectomy (03/01/2018) [facility]: Grade 3 view, MAC 3, ETT 7.0 atraumatic. No post-op issues per anesthesia progress note. History of cataract surgery R/L History of cervical polypectomy History of colonoscopy History of conization of cervix History of D&C History of dilation and curettage History of Mohs micrographic surgery for skin cancer History of total knee replacement Left TKA (10/12/20): SAB at L3 x 1 attempt + PNB at [facility]. No issues per post- op anesthesia progress note. Past Anesthesia History No Family Hx of Anesthesia Complications and Other (Difficulty with anesthesia induction 1960s, no issues with multiple subsequent surgeries/anesthesia) History of PONV No Hx of PONV and No Hx of Motion Sickness Social History Smoking Status: Never smoker Do You Dip or Chew Tobacco: No Hx Alcohol Use: No Hx Substance Use: No substance use type: does not use Review of Systems Patient denies chest pain, shortness of breath, fever, chills, cough, wheezing, palpitations. Physical Exam Vital Signs VITALS BP 153/84 P 75 TEMP 98.3 SP02 93%RA RESP 16 PHYSICAL Full cervical extension range of motion. Full TMJ range of motion. TMD 3.5 finger breaths Mallampati Score 4 (small oral opening) Dentition: intact Lungs: clear throughout to auscultation Cardiac: regular rate and rhythm, no murmurs noted Spine: normal Carotid arteries: negative bruit Extremities: no edema Short neck Lab Results Anesthesia Preop Results Results Anesthesia Widget: WBC 10.51 K/uL (4.8-10.8) 11/15/21 Hgb 14.9 g/dL (12.0-16.0) 11/15/21 Hct 44.8 % (37-47) 11/15/21 Plt 283 K/uL (130-400) 11/15/21 Na 139 mmol/L (136-145) 11/15/21 K 3.9 mmol/L (3.5-5.1) 11/15/21 Cl 101 mmol/L (98-107) 11/15/21 CO2 29 mmol/L (21-32) 11/15/21 BUN 19 mg/dl (6-23) 11/15/21 Creat 0.91 mg/dl (0.6-1.2) 11/15/21 Glucose Level 152 mg/dl (70-99(Fasting)) H 11/15/21 PT 11.2 Seconds (9.0-12.0) 11/15/21 PTT 27.2 Seconds (21.0-31.0) 11/15/21 INR 1.1 (0.9-1.1) 11/15/21 HA1c 6.8 % (4.5-5.6) H 11/15/21 Blood Type O Positive 11/15/21 Antibody Screen NEGATIVE 11/15/21 Testing Electrocardiogram Date: 11/15/21 Unusual P axis, possible ectopic atrial rhythm. Chest X-Ray Date: 11/15/21 FINDINGS: PA and lateral chest radiographs are compared to study dated 09/15/2020. The PA view is degraded by apical lordotic positioning. The cardiomediastinal silhouette is unremarkable. Chronic interstitial thickening is similar to previous. The lungs and pleural spaces are clear noting mild bibasilar atelect asis. There is no pneumothorax. The skeletal structures are osteopenic. The bony thorax appears intact. Degenerative change is noted in the shoulders and thoracic spine. IMPRESSION: No active disease in the chest.
--- NOTE | 2021-12-05 15:54 | History and Physical Report ---
DATE OF ADMISSION: 12/09/2021 CHIEF COMPLAINT: Persistent right knee pain and discomfort. HISTORY OF PRESENT ILLNESS: The patient is a 81-year-old white female now a little over a year out f rom her left knee replacement. She continues to be bothered by right knee pain and discomfort. She has become a bit more active, the right knee is bothering her more. She has been through extensive c onservative treatment in the past, which has become less successful. I was very happy with her left knee. She agrees with the surgery pretty well. She is hoping to have her right knee replaced. It i s global pain. The more she is up on it, the more it hurts and it swells as the day goes on. PAST MEDICAL HISTORY: 1. History of hypertension. 2. Elevated cholesterol. 3. Diabetes with an A1c of 6.8. 4. Low back pain/sciatica. 5. Obesity with BMI of 44. 6. Skin cancer. PAST SURGICAL HISTORY: Includes, 1. Back surgery. 2. Left knee replacement done on 10/12/2020. 3. Cervical polypectomy. 4. D and C. 5. Mohs surgery. ALLERGIES: PENICILLIN. REACTION IS UNKNOWN. CODEINE CAUSED NAUSEA. CURRENT MEDICATIONS: Includes: 1. Atorvastatin. 2. Zyrtec. 3. Coenzyme Q. 4. Vitamin B12. 5. Hydrochlorothiazide. 6. Insulin. 7. Losartan. 8. Metformin. 9. Eye drops. 10. Psyllium. 11. Ozempic. 12. Tramadol. 13. Triamcinolone. 14. Turmeric. SOCIAL HISTORY: This is a 81-year-old female. She is . Does not smoke. FAMILY HISTORY: Noncontributory. REVIEW OF SYSTEMS: Significant for fairly well controlled diabetes. No chest pain or shortness of b reath. No history of DVT or PE. PHYSICAL EXAMINATION: GENERAL: Shows a pleasant middle-aged female. Looks to be in reasonably good health. HEENT: Benign. NECK: Supple. No lymphadenopathy. LUNGS: Clear to auscultation. HEART: Regular rate and rhythm. ABDOMEN: Soft, nontender, nondistended. EXTREMITIES: Grossly neurovascularly intact except as follows. Examination of both knees revealed patient ambulates independently. Examination of the right knee re veals moderate soft tissue envelope. She has slight varus alignment to her knee. She is tender over the medial joint line. Range of motion 5-120. No instability. No pain with hip motion. Examination of the left knee reveals a well-healed incision. She has anatomic alignment. Range of m otion is 0 to 120. X-RAYS: X-rays of the right knee were reviewed. It shows advanced right knee tricompartment DJD. S he has complete loss of medial joint space. She has subchondral sclerosis. She has osteophytes prim arily medially. The left knee replacement looks to be in good position without signs of problems. ASSESSMENT: A 81-year-old white female, a year out from the left knee replacement with additional me dical comorbidities including hypertension, elevated cholesterol, diabetes, obesity with advanced rig ht knee degenerative joint disease. She has failed conservative measures and would like to have her right knee replaced. PLAN: We will take her to the operating room and do a right total knee replacement. The risks and b enefits of this procedure were explained to the patient and include but not limited to DVT, PE, , infection, neurological, vascular injury, bleeding problem, pain, limited range of motion, stiffnes s, failure to relieve her symptoms, incomplete relief of symptoms, need for further surgery in the fu ture, etc. The patient understands and desires to proceed. Informed consent was obtained. She was planning to be discharged to home using [facility]. Her is available to a ssist in her care. She will hold the metformin on the morning of surgery. Job ID: [id number]
[~2021-12-09 09:47] MED LIST changes: +BUPIVACAINE 0.5 % 5 MG/1 ML PF 10ML VIAL ONE; -GABAPENTIN 300 MG CAP PO SCH; +ROPIVACAINE 0.5% 5 MG/ML 30 ML VIAL ONE; -VANCOMYCIN HCL 1,500 MG in SODIUM CHLORIDE 0.9% 500 ML IV SCH; +ceFAZolin 2000MG 2,000 MG/15 ML SYR IV SCH
[2021-12-09] MEDS ORDERED: MIDAZOLAM HCL 1 MG/ML 2ML VIAL ONE (10:24)
[2021-12-09] MEDS ORDERED: PROPOFOL IV EMULSION 10 MG/ML 20 ML VIAL IV ONE ×3 (10:27→13:49)
--- NOTE | 2021-12-09 10:46 | History & Physical Bridge Note ---
Date of Service December 09, 2021 History & Physical Bridge Note I have examined the patient, reviewed the History & Physical and in the interval since the performance of the History & Physical I have noted the following changes of clinical significance: no changes noted
[2021-12-09] MEDS ORDERED: SODIUM CHLORIDE 0.9% PF 50 ML VIAL ONE (10:53)
[2021-12-09] MEDS ORDERED: BUPIVACAINE/EPINEPHRINE 0.25% 1:200,000 30 ML VIAL ONE (10:53)
[2021-12-09] MEDS ORDERED: BUPIVACAINE LIPOSOME 1.3% 266 MG/20 ML VIAL ONE (10:53)
[2021-12-09] MEDS ORDERED: dexAMETHasone 4 MG in SYRINGE 0 ML IV ONE (11:05)
[2021-12-09] MEDS ORDERED: ePHEDrine sulfate 50 MG/ML AMP IV PRN (11:06)
[2021-12-09] MEDS ORDERED: ATROPINE SULFATE 0.1 MG/ML 10ML SYR IV PRN (11:06)
[2021-12-09] MEDS ORDERED: HYDROmorphone INJ 2 MG/ML SYR/VIAL IV PRN (11:06)
[2021-12-09] MEDS ORDERED: ONDANSETRON INJ 2 MG/ML 2 ML VIAL IV PRN ×2 (11:06→16:13)
[2021-12-09] MEDS ORDERED: dexAMETHasone 4 MG in SYRINGE 0 ML IV STA (11:14)
[2021-12-09] MEDS ORDERED: Nursing to Pharmacy Communication SCH (11:30)
[2021-12-09] MEDS ORDERED: DEXAMETHASONE SOD INJ 4 MG/ML VIAL IV ONE (11:30)
[2021-12-09] MEDS ORDERED: fentaNYL citrate 100 MCG/2 ML VIAL ONE (13:08)
[2021-12-09] MEDS ORDERED: PHENYLEPHRINE 100MCG/ML 5ML SYR ONE (13:54)
[2021-12-09] MEDS ORDERED: METOCLOPRAMIDE HCL INJ 5 MG/ML 2 ML VIAL ONE (13:54)
[2021-12-09] MEDS ORDERED: ONDANSETRON INJ 2 MG/ML 2 ML VIAL ONE (13:54)
--- NOTE | 2021-12-09 14:33 | Operative Report ---
PG Post Operative Report Pre & Post Diagnosis Operation Date: 12/09/21 12:30 Pre-Op Diagnosis: Right Knee Osteoarthritis Post-Op Diagnosis: Right Knee Osteoarthritis I identified the patient and participated in the time-out.: Yes Procedure Operation Date: 12/09/21 12:30 Actual Procedures p Right Total Knee Arthroplasty(Right) - Jason Prabhakar MD Surgeon Jason Prabhakar MD Telesales Manager Seamus Jay PA-C Estimated Blood Loss 50 Findings Consistent with Post-Op Diagnosis Operative findings revealed advanced right knee tricompartment DJD. She had complete cartilage loss in all 3 compartments most severe in the medial side. She had a varus deformity to her knee with osteophytes in the medial compartment. Moderate-sized joint effusion. Specimens Right knee sent for pathology Anesthesia Type Spinal MAC Complications none Disposition Accompanied Patient To Recovery: No Indications Patient is a 81-year-old female said a long history of bilateral knee pain and discomfort. She been treated conservatively over the years. She did have her Description of Procedure Operative implants consist of: 1. Biomet Vanguard size 65 right posterior stabilized femoral component. 2. Biomet size 67 tibial tray. 3. 12 mm posterior stabilized polyethylene insert. 4. 25 x 8 all polypatella. The patient was taken the operating, identified, and placed on the operating table supine position protect areas were properly padded. IV antibiotics tried by anesthesia team. A spinal anesthetic and abductor canal block had provided holding area. Orozco catheter was placed in sterile fashion. Right thigh tent was then placed in the right lower extremities and prepped and draped in usual sterile fashion. The right leg was elevate exsanguinated with use of an Esmarch in terms playset 300 mmHg. An anterior approach of the right knee was then performed to longitudinal incision centered over the patella. Sharp dissection was carried through subcutaneous tissue down the extensor mechanism. A medial parapatellar arthrotomy incision was made. Some subperiosteal dissection was carried out medially. The fat pad was resected from each patella tendon. Lateral patellofemoral ligament was released. Patella subluxated laterally and the knee was flexed. The osteophytes were taken off distal femur. The ACL and PCL were then released in the distal femur and the tibia subluxated anteriorly. The external tibial alignment jig was then placed the interface the tibia and adjusted 14 mm medially. Proximal tibial cut was made remove about millimeter bone from the most deficient aspect medial tibial plateau. The tibia sized to a size 67. Attention drawn the femur. The distal femur was then with a sharp drill bit intramedullary canal was suction. A right 5 degree valgus cutting guide was placed. Distal femoral cutting block was pinned in place. Distal femoral cut was made to take an additional 5 mm of bone off distal femur. The femur was then sized to a size 65. The AP cutting block was pinned parallel to the epicondylar axis which was 5 degrees of external rotation. Anterior cut, anterior chamfer, posterior cut, posterior chamfer cuts were made for the box cutting guide was placed in a just slight lateral and the box cut was made. The knee was flexed. The remnants of the medial lateral menisci were excised. The osteophytes taken off the posterior aspect of femur. A trial femoral component was placed. The tibial tray was pinned in maximum external rotation and the drill and stem punch were used. Defect in the proximal tibia for the tibial tray. The knee was then trialed and the 12 mm insert fit most appropriately. Attention drawn the patella. Nupathe the patella was cleaned of all soft tissues. Patella thickness measured 21 mm in thickness was cut down to 13. It was a very small patella. Was sized to a size 25. The lug holes were drilled for the 25 patella. The lateral osteophyte was removed. Patella button was placed. Knee was taken through range of motion patella tracked nicely with no thumbs test. Attention drawn to place the permanent components. Nupathe all trial components were removed. Bone plug was placed in the distal femur limit blood loss. Double batch Palacos G cement was mixed. A Biomet Vanguard size 65 right posterior stabilized femoral component, size 67 tibial tray, a 12 mm posterior stabilized polyethylene insert, and a 25 x 8 all polypatella then cemented in place. Knee was brought out into full extension until cement hardened. Final cement check was then performed. The pericapsular tissues were injected with total 100 cc of combination of 20 cc of Exparel, 30 cc normal saline, 50 cc of quarter percent Marcaine with epinephrine. Patient did receive 1 g tranexamic acid. The tourniquet was let down for final tourniquet time of 59 minutes. Hemostasis assured use electrocautery. Extensor mechanism closed with combination 1 PDS suture and #1 Vicryl suture in [id number] fashion. Extensor mechanism checked found to be intact the subcutaneous tissue then closed with 2 Dexon suture in a buried interrupted fashion skin was closed skin noe. Legs then cleaned dried and sterile dressed with Xeroform, 4 x 4's, sterile cast padding, Sahkir bandage were applied. Patient then transferred to the recovery room in stable condition. Patient tolerated procedure well and there were no complications. Seamus Jay, my physician social work assistant, was present for the entire procedure. His assistance was essential and required for appropriate patient positioning, prepping and draping, surgical exposure, performing the technical details of the operation, placement the implants, closure of the wound, and placement of the sterile bandage. I attest to the content of the Intraoperative Record and any orders documented therein. Any exceptions are noted below.
--- NOTE | 2021-12-09 14:58 | XRay Report ---
XR knee RT 1 or 2V routine CLINICAL HISTORY: Postoperative evaluation. COMPARISON: Right knee radiographs October 18, 2021. FINDINGS: Alignment of the total right knee arthroplasty is anatomic. There is no periprosthetic fra cture or unexpected radiopaque foreign body. There are skin noe. IMPRESSION: Expected findings following total right knee arthroplasty. ACT 112: Negative or not required by law. Electronically signed by: Esteban Lang M.D. 12/09/2021 2:55 PM
--- NOTE | 2021-12-09 14:58 | Anesthesiology Progress Note ---
Date of Service December 09, 2021 Anesthesia Post Procedure Vital Signs Vital Signs: Temp Pulse Resp BP Pulse Ox 12/09/21 14:55 36.4 C L 79 18 133/59 L 95 12/09/21 14:45 75 18 154/53 H 98 12/09/21 14:35 72 18 136/77 99 12/09/21 14:25 36.1 C L 80 18 134/56 L 95 12/09/21 10:20 36.9 C 79 18 149/60 H 93 Pain Intensity Right Knee: Pain Intensity: 0 Transfer of Care Handoff Completed per policy Notes Mental Status: alert / awake / arousable and participated in evaluation Nausea / Vomiting: adequately controlled Pain: adequately controlled Airway Patency, RR, SpO2: stable & adequate BP & HR: stable & adequate Hydration State: stable & adequate Neuraxial Anesthesia: was administered and sensory block is resolving Anesthetic Complications: no major complications apparent and Pt Satisfied with anesthetic care
[2021-12-09] MEDS ORDERED: traMADol HCL 50 MG TABLET PO PRN (16:13)
[2021-12-09] MEDS ORDERED: bisacodyL 10 MG SUPP PR PRN (16:13)
[2021-12-09] MEDS ORDERED: PHARMACY GLYCEMIC MGMT CONSULT PRN (16:13)
[2021-12-09] MEDS ORDERED: CARBOHYDRATES FOR HYPOGLYCEMIA PO PRN ×2 (16:13→18:00)
[2021-12-09] MEDS ORDERED: GLUCAGON FOR INJ 1 MG VIAL SQ PRN ×2 (16:13→18:00)
[2021-12-09] MEDS ORDERED: GLUCOSE 40% GEL 15 GM TUBE PO PRN ×2 (16:13→18:00)
[2021-12-09] MEDS ORDERED: NALOXONE HCL 0.4 MG/1 ML VIAL/CARP IV PRN (16:13)
[2021-12-09] MEDS ORDERED: MAGNESIUM HYDROXIDE SUSP 30 ML UDC PO PRN (16:13)
[2021-12-09] MEDS ORDERED: GLUCOSE 10 TABS/TUBE PO PRN ×2 (16:13→18:00)
[2021-12-09] MEDS ORDERED: DEXTROSE 50% 50 ML SYRINGE IV PRN ×2 (16:13→18:00)
[2021-12-09] MEDS ORDERED: ALUMINUM/MAGNESIUM SUSP 30 ML UDC PO PRN (16:13)
[2021-12-09] MEDS ORDERED: METOCLOPRAMIDE HCL INJ 5 MG/ML 2 ML VIAL IV PRN (16:13)
[2021-12-09] MEDS ORDERED: HYDROmorphone INJ 0.5 MG/0.5 ML SYR IV PRN (16:13)
[2021-12-09] MEDS ORDERED: TRIAMCINOLONE ACET NASAL SPRAY 10.8ML BTL PRN (17:16)
[2021-12-09] MEDS ORDERED: INSULIN ASPART 100 UNITS/ML VIAL SC PRN (18:00)
[2021-12-09] MEDS: SODIUM CHLORIDE 0.9% 1000ML 1,000 ML IV SCH (18:44)
[2021-12-09] MEDS: ASCORBIC ACID 500 MG TAB PO SCH (18:45)
[2021-12-09] MEDS: NovoLOG INSULIN PUMP SCH ×2 (18:45→21:29)
[2021-12-09] MEDS: KETOROLAC TROMETHAMINE 15 MG/ML VIAL IV SCH ×2 (18:47→23:06)
[2021-12-09] MEDS: ceFAZolin 2000MG 2,000 MG/15 ML SYR IV SCH (20:07)
[2021-12-09] MEDS: DOCUSATE SODIUM 100 MG CAP PO SCH (20:08)
[2021-12-09] MEDS: ASPIRIN 81 MG ECTAB PO SCH (20:08)
[2021-12-09] MEDS ORDERED: TRANEXAMIC ACID / 0.7% NACL 1,000 MG/100 ML BAG IV SCH (20:30)
[2021-12-09] MEDS ORDERED: CETIRIZINE HCL 10 MG TABLET PO SCH (21:00)
[2021-12-09] MEDS ORDERED: NovoLOG INSULIN PUMP SCH (21:00)
[2021-12-09] MEDS ORDERED: SENNA 8.6 MG TAB PO SCH (21:00)
[2021-12-09] MEDS: ACETAMINOPHEN 500 MG TAB PO SCH (21:28)
[2021-12-10] MEDS: SODIUM CHLORIDE 0.9% 1000ML 1,000 ML IV SCH (04:08)
[2021-12-10] MEDS: ceFAZolin 2000MG 2,000 MG/15 ML SYR IV SCH (04:56)
[2021-12-10] MEDS: ACETAMINOPHEN 500 MG TAB PO SCH (04:57)
[2021-12-10] MEDS: KETOROLAC TROMETHAMINE 15 MG/ML VIAL IV SCH (04:58)
[2021-12-10 06:26] LABS: Hematocrit (blood only) 36.8 % (37-47); Hemoglobin 12.2 g/dL (12.0-16.0); Mean Corpuscular Hemoglobin 29.5 pg (25-34); Mean Corpuscular Hgb Conc 33.2 g/dL (32-36); Mean Corpuscular Volume 89.1 fL (80-100); Mean Platelet Volume 11.3 fL (7.4-10.4); Platelet Count 299 K/uL (130-400); RDW Coefficient of Variation 14.1 % (11.5-14.5); RDW Standard Deviation 46.2 fL (36.4-46.3); Red Blood Count 4.13 M/uL (4.2-5.4); White Blood Count 15.76 K/uL (4.8-10.8)
[2021-12-10 06:56] LABS: Calcium 8.2 mg/dl (8.5-10.1); Est GFR (Non-African American) 39.7 ml/min
--- NOTE | 2021-12-10 08:29 | Progress Notes ---
DATE OF NOTE: 12/10/2021. SUBJECTIVE: A 81-year-old white female postoperative day 1 from a right knee replacement. She is do ing pretty well. Had pretty good night. No chest pain or shortness of breath. Knee pain is under c ontrol. She is interested in getting home today. OBJECTIVE: VITAL SIGNS: Temperature 36.6. Vital signs are stable. GENERAL: Shows a pleasant, elderly female. She is lying in bed, looks pretty comfortable this morni ng. LUNGS: Clear to auscultation. HEART: Regular rate and rhythm. ABDOMEN: Soft, nontender, nondistended. EXTREMITIES: Grossly neurovascularly intact except as follows. Examination of the right knee and leg reveals the dressing to be clean, dry and intact. She can dors iflex and plantarflex her foot appropriately. She is neurologically intact. LABORATORY: Hemoglobin 12.2. Hematocrit 36.8. Electrolytes are stable. Creatinine is stable, but just slightly elevated about her baseline. ASSESSMENT: A 81-year-old white female postoperative day 1 from right knee replacement, doing pretty well. Pain is controlled. She is neurologically intact. She is hoping to go home. PLAN: 1. DVT prophylaxis include thigh-high TEDs, SCDs, and aspirin twice a day. 2. PT, OT, weightbear as tolerated. Right total knee protocol. 3. Pain control, doing okay with current pain regimen. 4. Disposition: Plan to discharge to home with some home health later today if she does okay in the rapy. Job ID: [id number]
[2021-12-10] MEDS: NovoLOG INSULIN PUMP SCH (08:54)
[2021-12-10] MEDS: ASCORBIC ACID 500 MG TAB PO SCH (08:57)
[2021-12-10] MEDS: DOCUSATE SODIUM 100 MG CAP PO SCH (08:58)
[2021-12-10] MEDS: ASPIRIN 81 MG ECTAB PO SCH (08:58)
[2021-12-10] MEDS ORDERED: NON-FORMULARY MEDICATION (Coq10 (Ubiquinol) 100 mg Capsule) PO SCH (09:00)
[2021-12-10] MEDS ORDERED: [UNRECOGNIZED DRUG - OTHER] PO SCH (09:00)
[2021-12-10] MEDS ORDERED: LOSARTAN POTASSIUM 50 MG TAB PO SCH (09:00)
[2021-12-10] MEDS ORDERED: CHOLECALCIFEROL 1,000 UNITS 25 MCG TAB PO SCH (09:00)
[2021-12-10] MEDS ORDERED: INTRINSIC FACTOR PO SCH (09:00)
[2021-12-10] MEDS ORDERED: hydroCHLOROthiazide 25 MG TAB PO SCH (09:00)
[2021-12-10] MEDS ORDERED: DOCUSATE SODIUM/SENNA 50/8.6MG TAB PO SCH (09:00)
[2021-12-10] MEDS ORDERED: PSYLLIUM or GUAR GUM FIBER POWDER PACKET PO SCH (09:00)
[2021-12-10] MEDS ORDERED: MULTIVITAMIN TAB PO SCH (09:00)
[2021-12-10] MEDS ORDERED: ATORVASTATIN 10 MG TAB PO SCH (21:00)
--- NOTE | 2021-12-12 18:49 | Discharge Summary ---
Date of Service December 12, 2021 Discharge Data Procedures Performed Operation Date: 12/09/21 12:30 Actual Procedures p Right Total Knee Arthroplasty(Right) - Jason Prabhakar MD Hospital Course (1) Status post total right knee replacement: This is a 81 year old patient admitted on 12/09/21 and underwent total knee arthroplasty. She tolerated the procedure well and there were no complications. Transferred to the PACU post op and later to the orthopedic floor for further care. She was given ancef for antibiotic prophylaxis. She was also given AUGUST stockings, SCDs, and aspirin for DVT prophylaxis. Hemoglobin, hematocrit, and vital signs were monitored during her hospital stay and remained stable. Did not require any blood transfusions. There were no complications during her hospital stay. By post op day #1 the patient was tolerating a regular diet, pain was reasonably controlled with oral pain medicine, and she was participating in physical therapy. On post op day #1 the patient was discharged home and set up with home health care. She was given printed discharge instructions including prescriptions for extra strength tylenol, aspirin, toradol, zofran, and tramadol . Continue physical therapy, weight bearing as tolerated. Continue AUGUST stockings. Follow up approximately 2 weeks post op or sooner if there are problems or concerns. Coding Level of Care Code None Diagnoses Status post total right knee replacement Z96.651
== END 2021-12-10 11:23 | disposition home health service (06) ==
LOC: PACUINP 09:47 → ASU 09:47 → 3E 18:15
DX: E66.01 Morbid (severe) obesity due to excess calories; Z79.84 Long term (current) use of oral hypoglycemic drugs; Z79.899 Other long term (current) drug therapy; Z88.5 Allergy status to narcotic agent; I10 Essential (primary) hypertension; E78.00 Pure hypercholesterolemia, unspecified; M17.11 Unilateral primary osteoarthritis, right knee; Z79.4 Long term (current) use of insulin; Z88.0 Allergy status to penicillin; Z79.82 Long term (current) use of aspirin; E11.9 Type 2 diabetes mellitus without complications; Z68.42 Body mass index [BMI] 45.0-49.9, adult